=== PATIENT | male | born 1975 | race African-American/Black ===

== ENCOUNTER 2021-02-13 07:27 | Outpatient (REF) | payer BC, SELFPAY ==
[2021-02-13 08:05] LABS: MANUAL DIFF FLAG NO
[2021-02-13 08:15] LABS: Basophils Percent Auto 0.2 % (0-2); Eosinophils Absolute Auto 0.3 X10*3/uL (0.0-0.4); Hematocrit 43.8 % (42-52); Hemoglobin 14.8 g/dl (14.0-18.0); Imm Gran Abs Auto 0.03 X10*3/uL (0.00-0.03); Imm Gran Pct Auto 0.3 % (0.0-0.4); Lymphocytes Absolute Auto 2.2 X10*3/uL (1.2-4.9); Lymphocytes Percent Auto 24.2 % (20-40); Mean Corpuscular HGB Conc 33.8 g/dl (31.0-36.0); Mean Corpuscular Hemoglobin 27.6 pg (27.0-33.0); Mean Corpuscular Volume 81.6 fL (80-98); Mean Platelet Volume 10.1 fL (9.4-12.4); Monocytes Absolute Auto 0.5 X10*3/uL (0.1-1.2); Monocytes Percent Auto 5.7 % (2-11); Neutrophils Absolute Auto 6.1 X10*3/uL (2.0-8.3); Neutrophils Percent Auto 66.6 % (45-73); Platelet Count 264 X10*3/uL (160-400); Red Blood Count 5.37 X10*6/uL (4.60-5.80); Red Cell Distribution Width 13.7 % (11.0-16.0); White Blood Count 9.2 X10*3/uL (4.8-10.8)
[2021-02-13 08:30] LABS: Alanine Aminotransferase 24 U/L (0-40); Albumin Level 4.4 g/dL (3.5-5.0); Alkaline Phosphatase 123 U/L (39-117); Anion Gap 14 (12-20); Aspartate Amino Transferase 22 U/L (5-37); Bilirubin Total 0.7 mg/dL (0.0-1.0); Blood Urea Nitrogen 17 mg/dL (9-16); Calcium 9.1 mg/dL (8.4-10.2); Carbon Dioxide 27 mmol/L (22-29); Chloride 104 mmol/L (96-108); Cholesterol 179 mg/dL; Estimated Glomerular Filt Rate 60; Glucose Fasting 125 mg/dL (60-99); HDL Cholesterol 40 mg/dL; LDL Cholesterol Calculated 103 mg/dl; Potassium 3.5 mmol/L (3.3-5.1); Sodium 141 mmol/L (135-145); Total Protein 7.5 g/dL (6.5-8.0); Triglycerides 180 mg/dL
[2021-02-13 08:37] LABS: Glucose Urine UA NEG (NEG); Leukocyte Esterase Urine NEG (NEG); Nitrite Urine NEG (NEG); Urine Blood TRACE (NEG); Urine Ketones NEG (NEG); Urine Protein TRACE MG/DL (NEG-TRACE)
[2021-02-13 08:41] LABS: Appearance Urine CLEAR; Color Urine YELLOW
[2021-02-13 08:53] LABS: TSH reflex Free T4 0.87 uIU/mL (0.32-4.0)
[2021-02-13 08:56] LABS: RBC Urine 0-2 /HPF (0); Squamous Epithelial Cell Urine TRACE /LPF; WBC Urine 0 /HPF (0-4)
[2021-02-13 09:07] LABS: Creatinine Urine 173.29 mg/dL; Microalbum/Creatinine Ratio Ur 54.8 ug/mg cr
== END 2021-02-13 07:28 | disposition home or self-care (01) ==
LOC: HO.LAB 07:27
PROVIDERS: PCP Internal Medicine; Visit Provider Internal Medicine
DX: I12.9 Hypertensive chronic kidney disease with stage 1 through stage 4 chronic kidney disease, or unspecified chronic kidney disease (principal); N18.31 Chronic kidney disease, stage 3a; R73.01 Impaired fasting glucose; R79.89 Other specified abnormal findings of blood chemistry; E66.9 Obesity, unspecified
CPT/HCPCS: 36415; 80053; 80061; 81001; 82043; 84443; 85025

== ENCOUNTER 2021-08-13 07:21 | Outpatient (REF) | payer BC, SELFPAY ==
[2021-08-13 07:39] LABS: MANUAL DIFF FLAG NO
[2021-08-13 07:59] LABS: Basophils Percent Auto 0.2 % (0-2); Eosinophils Absolute Auto 0.2 X10*3/uL (0.0-0.4); Eosinophils Percent Auto 1.9 % (0-4); Hematocrit 44.5 % (42.0-52.0); Hemoglobin 14.9 g/dl (14.0-18.0); Imm Gran Abs Auto 0.02 X10*3/uL (0.00-0.03); Imm Gran Pct Auto 0.2 % (0.0-0.4); Lymphocytes Absolute Auto 2.2 X10*3/uL (1.2-4.9); Lymphocytes Percent Auto 26.3 % (20-40); Mean Corpuscular HGB Conc 33.5 g/dl (31.0-36.0); Mean Corpuscular Hemoglobin 27.7 pg (27.0-33.0); Mean Corpuscular Volume 82.7 fL (80.0-98.0); Mean Platelet Volume 10.2 fL (9.4-12.4); Monocytes Absolute Auto 0.5 X10*3/uL (0.1-1.2); Monocytes Percent Auto 6.2 % (2-11); Neutrophils Absolute Auto 5.47 x10*3/uL (2.0-8.3); Neutrophils Percent Auto 65.2 % (45-73); Platelet Count 266 X10*3/uL (160-400); Red Blood Count 5.38 X10*6/uL (4.60-5.80); Red Cell Distribution Width 13.6 % (11.0-16.0); White Blood Count 8.4 X10*3/uL (4.8-10.8)
[2021-08-13 08:26] LABS: Creatinine Urine 194.22 mg/dL; Microalbum/Creatinine Ratio Ur 78.2 ug/mg cr
[2021-08-13 08:28] LABS: Alanine Aminotransferase 21 U/L (0-40); Albumin Level 4.4 g/dL (3.5-5.0); Alkaline Phosphatase 113 U/L (39-117); Anion Gap 14 (12-20); Aspartate Amino Transferase 18 U/L (5-37); Bilirubin Total 0.8 mg/dL (0.0-1.0); Blood Urea Nitrogen 13 mg/dL (9-16); Carbon Dioxide 30 mmol/L (22-29); Chloride 103 mmol/L (96-108); Cholesterol 156 mg/dL; Estimated Glomerular Filt Rate 58; Glucose Fasting 120 mg/dL (60-99); HDL Cholesterol 38 mg/dL; LDL Cholesterol Calculated 88 mg/dl; Potassium 3.5 mmol/L (3.3-5.1); Sodium 143 mmol/L (135-145); Total Protein 7.2 g/dL (6.5-8.0); Triglycerides 152 mg/dL
[2021-08-13 08:31] LABS: Appearance Urine CLEAR; Color Urine YELLOW; Glucose Urine UA NEG (NEG); Leukocyte Esterase Urine NEG (NEG); Nitrite Urine NEG (NEG); UACC Culture Trigger NO; Urine Blood NEG (NEG); Urine Ketones NEG (NEG); Urine Protein 1+ MG/DL (NEG-TRACE)
[2021-08-13 08:39] LABS: Estimated Average Glucose 120 mg/dL; Hemoglobin A1c % 5.8 %
[2021-08-13 08:43] LABS: Mucus Urine 2+ /LPF; RBC Urine 0 /HPF (0); Squamous Epithelial Cell Urine 1+ /LPF; WBC Urine 0-2 /HPF (0-4)
[2021-08-13 08:48] LABS: TSH reflex Free T4 0.88 uIU/mL (0.32-4.0)
== END 2021-08-13 07:22 | disposition home or self-care (01) ==
LOC: HO.LAB 07:21
PROVIDERS: PCP Internal Medicine; Visit Provider Internal Medicine
DX: I10 Essential (primary) hypertension (principal); E11.9 Type 2 diabetes mellitus without complications; E78.00 Pure hypercholesterolemia, unspecified
CPT/HCPCS: 36415; 80053; 80061; 81001; 82043; 83036; 84443; 85025

== ENCOUNTER 2021-12-10 08:06 | Outpatient (REF) | payer BC, SELFPAY ==
[2021-12-10 08:37] LABS: MANUAL DIFF FLAG NO
[2021-12-10 08:55] LABS: Appearance Urine CLEAR; Color Urine YELLOW; Glucose Urine UA NEG (NEG); Leukocyte Esterase Urine NEG (NEG); Nitrite Urine NEG (NEG); UACC Culture Trigger NO; Urine Blood TRACE (NEG); Urine Ketones NEG (NEG); Urine Protein 2+ MG/DL (NEG-TRACE)
[2021-12-10 08:56] LABS: Basophils Percent Auto 0.2 % (0-2); Eosinophils Absolute Auto 0.1 X10*3/uL (0.0-0.4); Eosinophils Percent Auto 1.6 % (0-4); Hematocrit 44.2 % (42.0-52.0); Imm Gran Abs Auto 0.02 X10*3/uL (0.00-0.03); Imm Gran Pct Auto 0.2 % (0.0-0.4); Lymphocytes Absolute Auto 1.7 X10*3/uL (1.2-4.9); Lymphocytes Percent Auto 20.6 % (20-40); Mean Corpuscular HGB Conc 33.9 g/dl (31.0-36.0); Mean Corpuscular Volume 82.5 fL (80.0-98.0); Mean Platelet Volume 9.8 fL (9.4-12.4); Monocytes Absolute Auto 0.4 X10*3/uL (0.1-1.2); Monocytes Percent Auto 5.3 % (2-11); Neutrophils Absolute Auto 5.8 x10*3/uL (2.0-8.3); Neutrophils Percent Auto 72.1 % (45-73); Platelet Count 227 X10*3/uL (160-400); Red Blood Count 5.36 X10*6/uL (4.60-5.80); Red Cell Distribution Width 13.5 % (11.0-16.0); White Blood Count 8.1 X10*3/uL (4.8-10.8)
[2021-12-10 09:02] LABS: RBC Urine 0-2 /HPF (0); Squamous Epithelial Cell Urine TRACE /LPF; WBC Urine 0 /HPF (0-4)
[2021-12-10 09:21] LABS: Alanine Aminotransferase 28 U/L (0-40); Albumin Level 4.4 g/dL (3.5-5.0); Alkaline Phosphatase 113 U/L (39-117); Anion Gap 11 (12-20); Aspartate Amino Transferase 24 U/L (5-37); Bilirubin Total 0.8 mg/dL (0.0-1.0); Blood Urea Nitrogen 16 mg/dL (9-16); Calcium 9.4 mg/dL (8.4-10.2); Carbon Dioxide 32 mmol/L (22-29); Chloride 102 mmol/L (96-108); Cholesterol 157 mg/dL; Estimated Average Glucose 120 mg/dL; Estimated Glomerular Filt Rate 56; Glucose Fasting 129 mg/dL (60-99); HDL Cholesterol 39 mg/dL; Hemoglobin A1c % 5.8 %; LDL Cholesterol Calculated 93 mg/dl; Potassium 3.4 mmol/L (3.3-5.1); Sodium 142 mmol/L (135-145); Total Protein 7.4 g/dL (6.5-8.0); Triglycerides 127 mg/dL
[2021-12-10 09:46] LABS: TSH reflex Free T4 0.92 uIU/mL (0.32-4.0)
== END 2021-12-10 08:07 | disposition home or self-care (01) ==
LOC: HO.LAB 08:06
PROVIDERS: PCP Internal Medicine; Visit Provider Internal Medicine
DX: I10 Essential (primary) hypertension (principal); E55.9 Vitamin D deficiency, unspecified; E78.00 Pure hypercholesterolemia, unspecified; E11.9 Type 2 diabetes mellitus without complications
CPT/HCPCS: 36415; 80053; 80061; 81001; 82306; 83036; 84443; 85025

== ENCOUNTER 2022-04-09 07:42 | Outpatient (REF) | payer BC, SELFPAY ==
[2022-04-09 09:11] LABS: Appearance Urine CLEAR; Color Urine YELLOW; Estimated Average Glucose 123 mg/dL; Glucose Urine UA NEG (NEG); Hemoglobin A1c % 5.9 %; Leukocyte Esterase Urine NEG (NEG); Nitrite Urine NEG (NEG); Specific Gravity - Urine 1.015 (1.005-1.025); Urine Blood NEG (NEG); Urine Ketones NEG (NEG); Urine Protein TRACE MG/DL (NEG-TRACE)
[2022-04-09 09:22] LABS: Alanine Aminotransferase 25 U/L (0-40); Albumin Level 4.2 g/dL (3.5-5.0); Alkaline Phosphatase 106 U/L (39-117); Anion Gap 13 (12-20); Aspartate Amino Transferase 22 U/L (5-37); Bilirubin Total 0.7 mg/dL (0.0-1.0); Blood Urea Nitrogen 16 mg/dL (9-16); Calcium 8.9 mg/dL (8.4-10.2); Carbon Dioxide 31 mmol/L (22-29); Chloride 101 mmol/L (96-108); Cholesterol 165 mg/dL; Estimated Glomerular Filt Rate 58; Glucose Fasting 128 mg/dL (60-99); HDL Cholesterol 37 mg/dL; LDL Cholesterol Calculated 87 mg/dl; Potassium 3.2 mmol/L (3.3-5.1); Sodium 142 mmol/L (135-145); Total Protein 7.2 g/dL (6.5-8.0); Triglycerides 208 mg/dL
== END 2022-04-09 07:43 | disposition home or self-care (01) ==
LOC: HO.LAB 07:42
PROVIDERS: PCP Internal Medicine; Visit Provider Internal Medicine
DX: E11.9 Type 2 diabetes mellitus without complications (principal); E78.00 Pure hypercholesterolemia, unspecified; I10 Essential (primary) hypertension
CPT/HCPCS: 36415; 80053; 80061; 81003; 83036

== ENCOUNTER 2022-08-20 06:51 | Outpatient (REF) | payer BC, SELFPAY ==
[2022-08-20 13:34] LABS: Alanine Aminotransferase 43 U/L (0-40); Albumin Level 4.4 g/dL (3.5-5.0); Alkaline Phosphatase 100 U/L (39-117); Anion Gap 19 (12-20); Aspartate Amino Transferase 32 U/L (5-37); Bilirubin Total 0.7 mg/dL (0.0-1.0); Blood Urea Nitrogen 18 mg/dL (9-16); Calcium 9.2 mg/dL (8.4-10.2); Carbon Dioxide 29 mmol/L (22-29); Chloride 99 mmol/L (96-108); Cholesterol 178 mg/dL; Estimated Glomerular Filt Rate 55; HDL Cholesterol 43 mg/dL; LDL Cholesterol Calculated 98 mg/dl; Potassium 3.2 mmol/L (3.3-5.1); Sodium 144 mmol/L (135-145); Total Protein 7.5 g/dL (6.5-8.0); Triglycerides 186 mg/dL
[2022-08-20 13:49] LABS: TSH reflex Free T4 1.37 uIU/mL (0.32-4.0)
[2022-08-20 14:07] LABS: Glucose Fasting 150 mg/dL (60-99)
[2022-08-20 14:32] LABS: Estimated Average Glucose 128 mg/dL; Hemoglobin A1c % 6.1 %
== END 2022-08-20 06:52 | disposition home or self-care (01) ==
LOC: HO.LAB 06:51
PROVIDERS: PCP Internal Medicine; Visit Provider Internal Medicine
DX: E78.00 Pure hypercholesterolemia, unspecified (principal); R73.01 Impaired fasting glucose
CPT/HCPCS: 36415; 80053; 80061; 83036; 84443

== ENCOUNTER 2023-01-13 07:48 | Outpatient (REF) | payer BC, SELFPAY ==
[2023-01-13 08:01] LABS: MANUAL DIFF FLAG NO
[2023-01-13 08:23] LABS: Basophils Percent Auto 0.3 % (0-2); Eosinophils Absolute Auto 0.2 X10*3/uL (0.0-0.4); Eosinophils Percent Auto 1.5 % (0-4); Hematocrit 45.5 % (42.0-52.0); Hemoglobin 15.8 g/dl (14.0-18.0); Imm Gran Abs Auto 0.02 X10*3/uL (0.00-0.03); Imm Gran Pct Auto 0.2 % (0.0-0.4); Lymphocytes Absolute Auto 2.2 X10*3/uL (1.2-4.9); Lymphocytes Percent Auto 21.5 % (20-40); Mean Corpuscular HGB Conc 34.7 g/dl (31.0-36.0); Mean Corpuscular Hemoglobin 27.8 pg (27.0-33.0); Mean Corpuscular Volume 80.1 fL (80.0-98.0); Mean Platelet Volume 9.6 fL (9.4-12.4); Monocytes Absolute Auto 0.4 X10*3/uL (0.1-1.2); Monocytes Percent Auto 4.3 % (2-11); Neutrophils Absolute Auto 7.2 x10*3/uL (2.0-8.3); Neutrophils Percent Auto 72.2 % (45-73); Platelet Count 274 X10*3/uL (160-400); Red Blood Count 5.68 X10*6/uL (4.60-5.80); Red Cell Distribution Width 13.5 % (11.0-16.0)
[2023-01-13 08:31] LABS: Appearance Urine Clear; Color Urine Yellow; Glucose Urine UA 100 mg/dL (Negative); Leukocyte Esterase Urine Negative (Negative); Nitrite Urine Negative (Negative); PH 6.5 (5.0-9.0); Specific Gravity - Urine 1.025 (1.005-1.025); UMIC TRIGGER UACC YES; Urine Blood Trace (Negative); Urine Ketones Negative (Negative); Urine Protein 100 (2+) mg/dL (Neg-Trace)
[2023-01-13 08:36] LABS: Bacteria Urine None Seen (None Seen); Hyaline Casts Urine 0-2 /LPF (0-2); RBC Urine 0-2 /HPF (0-2); Squamous Epithelial Cell Urine 0-2 /HPF (0-2); WBC Urine 0-5 /HPF (0-5)
[2023-01-13 08:53] LABS: Creatinine Urine 244.47 mg/dL; Microalbum/Creatinine Ratio Ur 184.8 ug/mg cr
[2023-01-13 08:55] LABS: Alanine Aminotransferase 28 U/L (0-40); Albumin Level 4.3 g/dL (3.5-5.0); Alkaline Phosphatase 110 U/L (39-117); Anion Gap 12 (12-20); Aspartate Amino Transferase 18 U/L (5-37); Bilirubin Total 0.8 mg/dL (0.0-1.0); Blood Urea Nitrogen 21 mg/dL (9-16); Calcium 9.4 mg/dL (8.4-10.2); Carbon Dioxide 32 mmol/L (22-29); Chloride 102 mmol/L (96-108); Cholesterol 179 mg/dL; Estimated Glomerular Filt Rate 50; Glucose Fasting 181 mg/dL (60-99); HDL Cholesterol 42 mg/dL; LDL Cholesterol Calculated 115 mg/dl; Potassium 3.3 mmol/L (3.3-5.1); Sodium 143 mmol/L (135-145); Total Protein 7.3 g/dL (6.5-8.0); Triglycerides 114 mg/dL
[2023-01-13 09:13] LABS: Prostate Specific Antigen 1.49 ng/mL (<0.05-4.0); Vitamin D 25-OH Total 46.2 ng/mL (>30)
== END 2023-01-13 07:49 | disposition home or self-care (01) ==
LOC: HO.LAB 07:48
PROVIDERS: Nurse Practitioner Family; PCP Internal Medicine; Visit Provider Internal Medicine
DX: I12.9 Hypertensive chronic kidney disease with stage 1 through stage 4 chronic kidney disease, or unspecified chronic kidney disease (principal); N18.31 Chronic kidney disease, stage 3a; R30.0 Dysuria; E78.00 Pure hypercholesterolemia, unspecified; E55.9 Vitamin D deficiency, unspecified; Z12.5 Encounter for screening for malignant neoplasm of prostate
CPT/HCPCS: 36415; 80053; 80061; 81001; 82043; 82306; 84153; 85025

== ENCOUNTER 2023-06-24 12:04 | Outpatient (REF) | payer BC, SELFPAY ==
[2023-06-24 12:16] LABS: MANUAL DIFF FLAG NO
[2023-06-24 12:44] LABS: Basophils Percent Auto 0.4 % (0-2); Eosinophils Absolute Auto 0.1 X10*3/uL (0.0-0.4); Eosinophils Percent Auto 1.3 % (0-4); Hemoglobin 14.6 g/dl (14.0-18.0); Imm Gran Abs Auto 0.02 X10*3/uL (0.00-0.03); Imm Gran Pct Auto 0.2 % (0.0-0.4); Lymphocytes Absolute Auto 2.1 X10*3/uL (1.2-4.9); Lymphocytes Percent Auto 24.9 % (20-40); Mean Corpuscular HGB Conc 34.8 g/dl (31.0-36.0); Mean Corpuscular Hemoglobin 28.3 pg (27.0-33.0); Mean Corpuscular Volume 81.6 fL (80.0-98.0); Mean Platelet Volume 9.9 fL (9.4-12.4); Monocytes Absolute Auto 0.4 X10*3/uL (0.1-1.2); Monocytes Percent Auto 5.1 % (2-11); Neutrophils Absolute Auto 5.7 x10*3/uL (2.0-8.3); Neutrophils Percent Auto 68.1 % (45-73); Platelet Count 262 X10*3/uL (160-400); Red Blood Count 5.15 X10*6/uL (4.60-5.80); Red Cell Distribution Width 13.7 % (11.0-16.0); White Blood Count 8.4 X10*3/uL (4.8-10.8)
[2023-06-24 13:11] LABS: Estimated Average Glucose 148 mg/dL; Hemoglobin A1c % 6.8 % (<6.0)
[2023-06-24 13:28] LABS: Alanine Aminotransferase 26 U/L (0-40); Albumin Level 4.4 g/dL (3.5-5.0); Alkaline Phosphatase 101 U/L (39-117); Anion Gap 11 (12-20); Aspartate Amino Transferase 20 U/L (5-37); Bilirubin Total 0.8 mg/dL (0.0-1.0); Blood Urea Nitrogen 12 mg/dL (9-16); Calcium 9.5 mg/dL (8.4-10.2); Carbon Dioxide 33 mmol/L (22-29); Chloride 103 mmol/L (96-108); Cholesterol 157 mg/dL (<200); Estimated Glomerular Filt Rate 57; Glucose Fasting 123 mg/dL (60-99); HDL Cholesterol 39 mg/dL (>40); LDL Cholesterol Calculated 95 mg/dL (<100); Sodium 144 mmol/L (135-145); Total Protein 7.4 g/dL (6.5-8.0); Triglycerides 117 mg/dL (<150)
[2023-06-24 13:44] LABS: TSH reflex Free T4 0.93 uIU/mL (0.32-4.0); Vitamin D 25-OH Total 42.4 ng/mL (>30)
[2023-06-24 14:20] LABS: Appearance Urine Clear; Color Urine Dark Yellow; Glucose Urine UA Negative (Negative); Leukocyte Esterase Urine Negative (Negative); Nitrite Urine Negative (Negative); PH 6.5 (5.0-9.0); Specific Gravity - Urine 1.025 (1.005-1.025); UMIC TRIGGER UACC YES; Urine Blood Negative (Negative); Urine Ketones Trace mg/dL (Negative); Urine Protein 30 (1+) mg/dL (Neg-Trace)
[2023-06-24 14:26] LABS: Bacteria Urine None Seen (None Seen); Hyaline Casts Urine 0-2 /LPF (0-2); RBC Urine 0-2 /HPF (0-2); Squamous Epithelial Cell Urine 0-2 /HPF (0-2); WBC Urine 0-5 /HPF (0-5)
[2023-06-24 14:48] LABS: Microalbum/Creatinine Ratio Ur 31.9 ug/mg cr (<30)
== END 2023-06-24 12:05 | disposition home or self-care (01) ==
LOC: HO.LAB 12:04
PROVIDERS: PCP Internal Medicine; Visit Provider Internal Medicine
DX: I10 Essential (primary) hypertension (principal); E11.9 Type 2 diabetes mellitus without complications; E55.9 Vitamin D deficiency, unspecified; E78.00 Pure hypercholesterolemia, unspecified
CPT/HCPCS: 36415; 80053; 80061; 81001; 82043; 82306; 82570; 83036; 84443; 85025

== ENCOUNTER 2023-06-24 16:38 | Outpatient (AMB) | payer BC, SELFPAY ==
[2023-06-24 16:41] VITALS: BP 150/90; BMI 34.4
--- NOTE | 2023-06-24 16:41 | A.OFFPC_ITS ---
Vital Signs 06/24/23 16:41 Height 6 ft Weight 254 lb BMI 34.4 BP 150/90 H Blood Pressure Location Lt brachial Position Sitting Intake Visit Reasons: Annual Exam-due for colonoscopy Intake Note: Patient here for a physical exam, due for colonoscopy Medical Transcription Supervisor Required: No Accompanied by: Self / Same As Patient Allergies cephalexin [Keflex] Allergy (Intermediate, Verified 06/24/23 17:27) rash Medication List - Last Reconciled 06/24/23 by Hayden Delgado MD amlodipine 10 mg PO DAILY 90 days cholecalciferol (vitamin D3) 50 mcg PO DAILY 90 days Farxiga (dapagliflozin propanediol) 5 mg PO QAM 30 days NS hydralazine 25 mg PO BID 30 days losartan-hydrochlorothiazide 100-12.5 mg 1 tab PO DAILY 90 days Tobacco use date assessed: 01/10/23 Dental Screening Dental Screen Date: 06/24/23 Did you have a dental visit in the last 12 months?: No Did you have a dental problem in the last 6 months where you did not have access to dental care?: No Was dental information given to patient?: Patient has dentist HPI Annual Exam-due for colonoscopy HPI Details Patient comes in today for his annual physical examination States that he feels okay He denies any headaches or dizziness Denies any chest pains, no shortness of breath No nausea /vomiting, no abdominal pain No change in bowel habits noted Denies any acute urinary symptoms Had his follow up labs done earlier today - to discuss his results [facility] Medical History Mixed hyperlipidemia Vitamin D deficiency Diabetes mellitus Obesity (BMI 30-39.9) Elevated LFTs Chronic kidney disease (CKD), stage III (moderate) Benign essential hypertension Surgical History No pertinent past surgical history Family History Father Hypertension Mother No problems noted. 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 1. Little interest or pleasure in doing things: not at all 2. Feeling down, depressed, or hopeless: not at all 3. Trouble falling or staying asleep, or sleeping too much: not at all 4. Feeling tired or having little energy: not at all 5. Poor appetite or overeating: not at all 6. Feeling bad about yourself - or that you are a failure or have let yourself or your family down: not at all 7. Trouble concentrating on things, such as reading the newspaper or watching television: not at all 8. Moving or speaking so slowly that other people could have noticed. Or the opposite - being so fidgety or restless that you have been moving around a lot more than usual: not at all 9. Thoughts that you would be better off or of hurting yourself in some way: not at all Total score: 0 Depression Screening Interpretation: Negative 65304 - PHQ-9 Billing: Yes Source: Developed by Drs. Davy Marina, Sagrario Mueller, Herber Chen and colleagues, with an educational christine from [employer]. Thrive Questionnaire Date Thrive assessed: 06/24/23 I am a: Patient What is your living situation today?: I have a steady place to live Within the past 12 months, did the food you bought not last and you didn't have the money to get more?: Never true Within the past 12 months, did you worry whether your food would run out before you got money to buy more?: Never true Currently or been in a relationship where the following occur: no concerns reported AUDIT C Alcohol Use Questionnaire (AUDIT-C) 1. How often do you have a drink containing alcohol?: Never 3. How often do you have six or more drinks on one occasion?: Never Total Score: 0 Score Reviewed/Action Taken: Yes KRISTIN-7 AMB Questionnaire KRISTIN-7 Date KRISTIN - 7 assessed: 01/10/23 Source: Developed by Drs. Davy Marina, Sagrario Mueller, Herber Chen and colleagues, with an educational christine from [employer]. Review of Systems Const Denies chills, Denies fatigue, Denies fever(s), Denies headache(s), Denies malaise and Denies weakness Eyes Denies blurry vision, Denies change in vision, Denies irritation and Denies itchy eyes ENT Denies dysphagia, Denies dizziness, Denies otalgia, Denies headache(s), Denies nasal congestion, Denies neck pain, Denies odynophagia and Denies sore throat Card Denies chest pain, Denies rapid heart rate, Denies irregular heart rhythm, Denies palpitations and Denies dyspnea Resp Denies chest congestion, Denies cough, Denies dyspnea and Denies wheezing GI Denies abdominal pain, Denies bloating, Denies constipation, Denies dysphagia, Denies heartburn, Denies diarrhea, Denies nausea, Denies odynophagia and Denies vomiting Denies hematuria, Denies difficulty urinating, Denies dysuria, Denies urinary frequency and Denies urinary urgency Musc Denies back pain, Denies arthralgias, Denies joint swelling, Denies muscle weakness and Denies neck pain Skin/Breast Denies change in pigmentation, Denies lesions, Denies rash and Denies unusual bruising Neuro Denies dizziness, Denies headache(s), Denies paresthesias and Denies weakness Endo Denies fatigue and Denies palpitations Aller/Immun Denies itchy eyes and Denies wheezing Physical exam (Primary Care) Vital Signs: Last Vital Signs BP 150/90 H 06/24/23 16:41 BMI result Body Mass Index 34.4 Tobacco/Smoking Status: Tobacco use Status Tobacco use date assessed 01/10/23 06/24/23 16:44 Patient Tobacco Use Status Former Tobacco user 06/24/23 16:44 Tobacco use type Cigarette 06/24/23 16:44 e-Cigarette/Vaping Use Never Used 06/24/23 16:44 Depression Screening Interpretation: Negative Thrive Assessment: Date of Thrive Assessment Date Thrive assessed 01/10/23 06/24/23 16:44 Currently or been in a relationship where the following occur: no concerns reported Const General: no acute distress, alert and awake Orientation/consciousness: patient oriented x3 [facility] Head: Yes normocephalic and Yes atraumatic Ears: external ears normal, TM's normal bilaterally and EAC's normal General nose exam: No nasal discharge present Face and sinus: Yes normal facial exam and Yes sinuses nontender Teeth and gingiva: dentition normal Throat: Yes posterior oropharynx normal and Yes tonsils normal (no TP co ngestion) Eyes Eyelids: Yes eyelids normal Conjunctivae: conjunctivae normal Pupils: Equal, round and reactive pupils present EOM: EOMs intact bilaterally Neck Neck: Yes no lymphadenopathy and Yes supple Thyroid: Thyroid normal Resp Auscultation: clear to auscultation bilaterally, no rales and no wheezes Cardio Rate: regular rate Rhythm: regular rhythm Heart sounds: no murmurs GI Palpation (GI): Soft to palpation, nontender and No hepatosplenomegaly present Auscultation: normal bowel sounds General: Yes no CVA tenderness Back/Spine/Pelvis Back: no CVA tenderness Thoracic/Lumbar Spine: thoracic and lumbar spine normal to inspection Skin Lesions: no lesions Rashes: no rashes Neuro General: patient oriented x3, moves all extremities, no focal motor deficits and CN's II-XI intact bilaterally Cranial nerves: Yes Equal, round and reactive pupils present Cognition (Neuro): normal cognition Gait exam (Neuro): Normal gait present Extrem General: Yes no clubbing, cyanosis or edema Assessment and Plan Assessment & Plan (1) Annual physical exam: Code(s): Z00.00 - Encounter for general adult medical examination without abnormal findings Plan: Results of his labs done earlier this morning reviewed and discussed with patient (2) Benign essential hypertension: Code(s): I10 - Essential (primary) hypertension Plan: Reinforced low sodium diet - goal is systolic BP of at least 120 to 130 mm or less Continue Losartan-HCT 100-12.5 mg QD, Amlodipine 10 mg QD and Hydralazine 25 mg BID Was doing well on Clonidine 0.2 mg BID but reports feeling tired and sleepy during the day while working and also when driving so he was switched from Clonidine to Hydralazine at his last visit; states that he has been tolerating his Hydralazine without any problems Patient is reminded to continue monitoring his BP regularly (3) Diabetes mellitus: Code(s): E11.9 - Type 2 diabetes mellitus without complications Qualifiers: Diabetes mellitus complication status: without complication 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 insulin use: without termite control servicer use Diabetes mellitus type: type 2 Qualified Code(s): E11.9 - Type 2 diabetes mellitus without complications Plan: In-office HgbA1c done today is at 6.8% (in-office HgbA1c was also at 6.8% a few months ago but HgbA1c was at 5.9% just last year) - goal is <7.0% Reinforced diabetic diet; patient continues to be able to manage his diabetes with diet modification alone so far but have advised him that his diabetes control has actually progressed in the past year or two and recommend that he start taking medication(s) for his diabetes KRISTEN or risk further progression of his disease He is now agreeable to starting on medication(s) - in light of his CKD, will try starting him on Farxiga 5 mg QD if insurance will cover Rx Advised that Farxiga may also help somewhat with his blood pressure Will recheck his HgbA1c and labs in 4 months for follow up (4) Chronic kidney disease (CKD), stage III (moderate): Code(s): N18.30 - Chronic kidney disease, stage 3 unspecified Qualifiers: Chronic kidney disease stage 3 subtype: stage 3a (GFR 45-59) Qualified Code(s): N18.31 - Chronic kidney disease, stage 3a Plan: Stable - will continue monitoring patient's GFR and serum creatinine regularly (5) Mixed hyperlipidemia: Code(s): E78.2 - Mixed hyperlipidemia Plan: Advised that his recent cholesterol levels are acceptable but with diabetes, the goal is an LDL cholesterol closer to 70 mg/dl Reinforced low cholesterol diet Will recheck his labs and fasting lipids in 4 months for follow up (6) Elevated LFTs: Code(s): R79.89 - Other specified abnormal findings of blood chemistry Plan: Improved and have remained normal on his recent labs - was most likely related to his weight Will continue to monitor his LFTs regularly (7) Vitamin D deficiency: Code(s): E55.9 - Vitamin D deficiency, unspecified Plan: Continue Vitamin D3 2000 units QD (8) Obesity (BMI 30-39.9): Code(s): E66.9 - Obesity, unspecified Plan: Reinforced diet/exercise as tolerated/lose weight (9) Colon cancer screening: Code(s): Z12.11 - Encounter for screening for malignant neoplasm of colon Plan: Will refer patient for screening colonoscopy - this will be his index screening Plan Follow up in 4 months Orders: Orders Hemoglobin A1c 4 Months E11.9 - Type 2 diabetes mellitus without complications Comprehensive [place]. Panel Fast 4 Months E78.00 - Pure hypercholesterolemia, unspecified Microalbumin, Random (w Creat) 4 Months E11.9 - Type 2 diabetes mellitus without complications UA CC w/rflx Micro + Cult 4 Months R30.0 - Dysuria Complete Blood Count Auto Diff 4 Months I10 - Essential (primary) hypertension Lipid Panel 4 Months E78.00 - Pure hypercholesterolemia, unspecified TSH reflex Free T4 4 Months E78.00 - Pure hypercholesterolemia, unspecified Vitamin D 25-OH Total 4 Months E55.9 - Vitamin D deficiency, unspecified Referrals Gastroenterology Referral Z12.11 - Encounter for screening for malignant neoplasm of colon Medications: New Farxiga (dapagliflozin propanediol) 5 mg PO QAM 30 days 30 tabs 0RF NS Farxiga (dapagliflozin propanediol) 5 mg PO QAM 30 days 30 tabs 3RF NS Farxiga (dapagliflozin propanediol) 5 mg PO QAM 30 tabs 3RF 30 days NS Coding Level of Care Code Est Pt Prev Care 40-64y(84608) Diagnoses Annual physical exam Z00.00 Benign essential hypertension I10 Type 2 diabetes mellitus without complication, without long-term current use of insulin E11.9 Diabetes mellitus complication status: without complication Diabetes mellitus retirement insulin use: without retirement use Diabetes mellitus type: type 2 Stage 3a chronic kidney disease N18.31 Chronic kidney disease stage 3 subtype: stage 3a (GFR 45-59) Mixed hyperlipidemia E78.2 Elevated LFTs R79.89 Vitamin D deficiency E55.9 Obesity (BMI 30-39.9) E66.9 Colon cancer screening Z12.11
== END 2023-06-24 17:25 | disposition home or self-care (01) ==
PROVIDERS: PCP Internal Medicine; Visit Provider Internal Medicine
DX: Z00.00 Encounter for general adult medical examination without abnormal findings (principal); I12.9 Hypertensive chronic kidney disease with stage 1 through stage 4 chronic kidney disease, or unspecified chronic kidney disease; E11.22 Type 2 diabetes mellitus with diabetic chronic kidney disease; N18.31 Chronic kidney disease, stage 3a; E55.9 Vitamin D deficiency, unspecified; E78.2 Mixed hyperlipidemia; E66.9 Obesity, unspecified
CPT/HCPCS: 99396

== ENCOUNTER 2023-08-15 15:42 | Outpatient (AMB) | payer BC, SELFPAY ==
[2023-08-15 15:47] VITALS: BP 142/92; PULSE 61; BMI 32.5
--- NOTE | 2023-08-15 15:47 | MHC.OFFVIS ---
Intake Vital Signs 08/15/23 15:47 Height 6 ft 1 in Weight 246 lb 0.574 oz BMI 32.5 BP 142/92 H Blood Pressure Location Rt brachial Position Sitting Pulse 61 Intake Visit Reasons: Colonoscopy screening Intake Note: Patient presents to in office visit today as a new patient for colonoscopy screening. CC: Patient reports occasional heartburn but states he takes Tums for it and this helps with sx. Denies other GI symptoms. Regional Wildlife Agent Required: No Accompanied by: Self / Same As Patient Allergies cephalexin [Keflex] Allergy (Intermediate, Verified 06/24/23 17:27) rash HPI Colonoscopy screening HPI Details 48-year-old male here for preprocedural meeting to discuss a screening colonoscopy. He is referred by Hayden Delgado of [facility] primary care. PMX Obesity Diabetes Chronic kidney disease stage 3 Hypertension High cholesterol Impaired fasting glucose * SURGICAL HISTORY Vasectomy * ALLERGIES Keflex - hives * [employer] LABS: Laboratory Tests 06/24/23 12:15 WBC 8.4 Hgb 14.6 Hct 42.0 Plt Count 262 Estimated GFR 57 Hemoglobin A1c % 6.8 H Total Bilirubin 0.8 AST 20 ALT 26 Alkaline Phosphata se 101 TSH 0.93 TODAY'S VISIT This is his first colonoscopy. He denies any bowel or upper GI problems. Has no real experience with anesthesia or sedation. He denies any cardiac or respiratory problems. No ID problems. His father had colon polyps. [facility] Medical History Mixed hyperlipidemia Vitamin D deficiency Diabetes mellitus Obesity (BMI 30-39.9) Elevated LFTs Chronic kidney disease (CKD), stage III (moderate) Benign essential hypertension Surgical History No pertinent past surgical history Family History Father Hypertension Mother No problems noted. 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 Current occupational exposures/hazards: No Cognitive needs: No Hearing needs: No Vision needs: Yes Review of Systems Const Denies fatigue, Denies fever(s), Denies night sweats, Denies poor appetite and Denies weight loss Eyes Details: glasses Reports requires corrective lenses ENT Reports Normal hearing present, Denies dysphagia, Denies odynophagia, Denies throat swelling and Denies tongue swelling Card Reports no additional complaints Resp Reports no additional complaints GI Denies abdominal pain, Denies melena, Denies bloating, Denies hematochezia, Denies constipation, Denies GI cramping, Denies dysphagia, Denies excessive flatus, Denies early satiety, Denies heartburn, Denies diarrhea, Denies nausea, Denies odynophagia, Denies vomiting and Denies hematemesis Reports nocturia Skin/Breast Denies pruritus, Denies lesions, Denies rash and Denies jaundice Neuro Reports Normal hearing present and Denies Abnormal speech present Endo Denies fatigue Aller/Immun Denies throat swelling and Denies tongue swelling Physical Exam Vital Signs: Last Vital Signs Pulse 61 08/15/23 15:47 BP 142/92 H 08/15/23 15:47 BMI result Body Mass Index 32.5 Const General: cooperative, no acute distress, well developed and well groomed Nutritional Appearance: well nourished and overweight Orientation/consciousness: oriented to person, oriented to place and oriented to time Limitations: No language barrier HEENT Head: Yes normocephalic and Yes atraumatic Eyes General: appearance normal, both eyes and all related structures Pupils: Equal, round and reactive pupils present Neck Neck: Yes normal visual inspection and Yes no lymphadenopathy Thyroid: Thyroid normal Chest Other: Multiple keloid scar across his chest Resp Effort & Inspection: normal respiratory effort and able to speak in complete sentences Auscultation: clear to auscultation bilaterally Cardio Rate: regular rate Rhythm: regular rhythm Heart sounds: Normal, physiologic split S2 sound present Peripheral pulses: radial pulses present and posterior tibial pulses present GI Inspection: No distended, No Abdominal panniculus present and Yes obesity Palpation (GI): Soft to palpation, nontender, no guarding, not rigid and No hepatosplenomegaly present Percussion: Yes normal to percussion Auscultation: normal bowel sounds Rectal Exam - Male: Yes deferred Skin General skin exam: no rashes or lesions noted, turgor normal, skin not dry, no jaundice, No spider nevi and no striae Rashes: no rashes Nails: normal Neuro General: oriented to person, oriented to place and oriented to time Cranial nerves: Yes Equal, round and reactive pupils present and Yes Normal hearing present Speech: No Abnormal speech present Extrem General: Yes normal to inspection, No clubbing, No cyanosis and No edema Psych Appearance: grossly normal and well kempt Mental Status: mental status grossly normal Speech and movement: Normal speech and movement present Affect: normal affect Attitude: cooperative Thought process: Normal thought process present and not confabulating Thought content: Normal thought content present Insight: Limited insight present (Psych) Judgement: Limited judgement present (Psych) Assessment & Plan Assessment & Plan (1) Pre-op examination: Code(s): Z01.818 - Encounter for other preprocedural examination Plan: This is his first colonoscopy. He denies any bowel or upper GI problems. Has no real experience with anesthesia or sedation. He denies any cardiac or respiratory problems. No ID problems. His father had colon polyps. (2) Family history of polyps in the colon: Comment: Father Code(s): Z83.719 - Family history of colon polyps, unspecified Orders: Orders Colonoscopy - GI Use Only Today Z01.818 - Encounter for other preprocedural examination Medications: New peg 3350-electrolytes 236-22.74-6.74 -5.86 gram (Golytely) until fecal effluent is clear; do not exceed a total volume of 2,000 mL 240 mL PO Q10M 1 day 4,000 mL 0RF Z12.11 - Encounter for screening for malignant neoplasm of colon Coding Level of Care Code New Pt Level 3 (40197) Diagnoses Pre-op examination Z01.818 Family history of polyps in the colon Z83.719
== END 2023-08-15 16:14 | disposition home or self-care (01) ==
PROVIDERS: PCP Internal Medicine; Visit Provider Nurse Practitioner
DX: Z01.818 Encounter for other preprocedural examination (principal); Z12.11 Encounter for screening for malignant neoplasm of colon; Z83.719 Family history of colon polyps, unspecified
CPT/HCPCS: S0285

== ENCOUNTER → 2023-08-15 15:42 | Outpatient (BNVA) | payer BC, SELFPAY | PROVIDERS: PCP Internal Medicine; Visit Provider Nurse Practitioner ==

== ENCOUNTER 2023-12-24 10:31 | Outpatient (AMB) | payer BC, SELFPAY ==
[2023-12-24 10:38] VITALS: BP 130/84; PULSE 80; O2SAT 98; BMI 31.5
--- NOTE | 2023-12-24 10:38 | MHC.PC.OV ---
Vital Signs 12/24/23 10:38 Height 6 ft 1 in Weight 239 lb 2 oz BMI 31.5 BP 130/84 Blood Pressure Location Lt brachial Position Sitting Pulse 80 Pulse Source Pulse Oximeter Pulse Oximetry (%) 98 Oxygen Delivery Method Room Air Intake Visit Reasons: DM, HTN, hyperlipidemia Securities Consultant Required: No Accompanied by: Self / Same As Patient Allergies cephalexin [Keflex] Allergy (Intermediate, Verified 12/24/23 11:36) rash Medication List - Last Reconciled 12/24/23 by Hayden Delgado MD amlodipine 10 mg PO DAILY 90 days cholecalciferol (vitamin D3) 50 mcg PO DAILY 90 days hydralazine 25 mg PO BID 30 days losartan-hydrochlorothiazide 100-12.5 mg 1 tab PO DAILY 90 days peg 3350-electrolytes 236-22.74-6.74 -5.86 gram (Golytely) 240 mL PO Q10M 1 day Tobacco use date assessed: 12/24/23 Dental Screening Dental Screen Date: 12/24/23 Did you have a dental visit in the last 12 months?: No Did you have a dental problem in the last 6 months where you did not have access to dental care?: No Was dental information given to patient?: No HPI DM, HTN, hyperlipidemia HPI Details Patient comes in today for his follow up visit States that he feels okay He denies any headaches or dizziness Denies any chest pains, no SOB No nausea/vomiting, no abdominal pain No change in bowel habits noted Was not able to get his follow up labs done prior to his visit today - states that he will go and get his labs done sometime in the next few days [facility] Medical History Mixed hyperlipidemia Vitamin D deficiency Diabetes mellitus Obesity (BMI 30-39.9) Elevated LFTs Chronic kidney disease (CKD), stage III (moderate) Benign essential hypertension Surgical History No pertinent past surgical history Family History Father Hypertension Mother No problems noted. 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 1. Little interest or pleasure in doing things: not at all 2. Feeling down, depressed, or hopeless: not at all 3. Trouble falling or staying asleep, or sleeping too much: not at all 4. Feeling tired or having little energy: not at all 5. Poor appetite or overeating: not at all 6. Feeling bad about yourself - or that you are a failure or have let yourself or your family down: not at all 7. Trouble concentrating on things, such as reading the newspaper or watching television: not at all 8. Moving or speaking so slowly that other people could have noticed. Or the opposite - being so fidgety or restless that you have been moving around a lot more than usual: not at all 9. Thoughts that you would be better off or of hurting yourself in some way: not at all Total score: 0 Depression Screening Interpretation: Negative Depression Screening Done: Yes 29429 - PHQ-9 Billing: Yes Source: Developed by Drs. Davy Marina, Sagrario Mueller, Herber Chen and colleagues, with an educational christine from [employer]. Thrive Questionnaire Date Thrive assessed: 12/24/23 I am a: Patient What is your living situation today?: I have a steady place to live Within the past 12 months, did the food you bought not last and you didn't have the money to get more?: Never true Within the past 12 months, did you worry whether your food would run out before you got money to buy more?: Never true Do you have trouble paying for medicines?: No Do you have trouble getting transportation to medical appointments?: No Do you have trouble paying your heating and electricity bill?: No Do you have trouble taking care of your child, family member or friend?: No Do you have trouble with day-to-day activities such as bathing, preparing meals, shopping, managing finances, etc.?: No Are you currently unemployed and looking for a job?: No Are you interested in more education?: No Please select the resources that you would like help with: None Currently or been in a relationship where the following occur: no concerns reported THRIVE Score: 0 AUDIT C Alcohol Use Questionnaire (AUDIT-C) 1. How often do you have a drink containing alcohol?: Never 3. How often do you have six or more drinks on one occasion?: Never Total Score: 0 Score Reviewed/Action Taken: Yes KRISTIN-7 AMB Questionnaire KRISTIN-7 Date KRISTIN - 7 assessed: 12/24/23 Feeling nervous, anxious, or on edge: 0 = Not at all Not being able to stop or control worryin = Not at all Worrying too much about different things: 0 = Not at all Trouble relaxin = Not at all Being so restless that it is hard to sit still: 0 = Not at all Becoming easily annoyed or irritable: 0 = Not at all Feeling afraid as if something awful might happen: 0 = Not at all Total KRISTIN-7 score (0-4 normal; 5-9 mild; 10-14 moderate; 15-21 severe): 0 Source: Developed by Drs. Davy Marina, Sagrario Mueller, eHrber Chen and colleagues, with an educational christine from [employer]. Review of Systems Const Denies fatigue, Denies fever(s) and Denies headache(s) ENT Denies dysphagia, Denies dizziness, Denies otalgia, Denies headache(s), Denies odynophagia, Reports tinnitus (on and off in both ears) and Denies sore throat Card Denies chest pain, Denies palpitations and Denies dyspnea Resp Denies cough, Denies dyspnea and Denies wheezing GI Denies abdominal pain, Denies constipation, Denies dysphagia, Denies heartburn, Denies diarrhea, Denies nausea, Denies odynophagia and Denies vomiting Denies dysuria, Denies nocturia and Denies urinary frequency Musc Denies back pain and Denies arthralgias Skin/Breast Denies rash Neuro Denies dizziness and Denies headache(s) Endo Denies fatigue and Denies palpitations Aller/Immun Denies wheezing Physical exam (Primary Care) Vital Signs: Last Vital Signs Pulse 80 12/24/23 10:38 BP 130/84 12/24/23 10:38 Pulse Ox 98 12/24/23 10:38 Oxygen Delivery Method Room Air 12/24/23 10:38 BMI result Body Mass Index 31.5 Tobacco/Smoking Status: Tobacco use Status Tobacco use date assessed 12/24/23 12/24/23 10:40 Patient Tobacco Use Status Former Tobacco user 12/24/23 10:40 Tobacco use type Cigarette 12/24/23 10:40 e-Cigarette/Vaping Use Never Used 12/24/23 10:40 PHQ-9: PHQ-9 Score PHQ-9: Total score 0 12/24/23 11:38 Depression Screening Interpretation: Negative Thrive Assessment: Date of Thrive Assessment Date Thrive assessed 12/24/23 12/24/23 10:40 Currently or been in a relationship where the following occur: no concerns reported Const General: no acute distress and alert HENMT Ears: TM's normal bilaterally and EAC's normal Throat: Yes posterior oropharynx normal and Yes tonsils normal (no TP congestion noted) Neck Neck: Yes no lymphadenopathy and Yes supple Resp Auscultation: clear to auscultation bilaterally, no rales and no wheezes Cardio Rate: regular rate Rhythm: regular rhythm Heart sounds: no murmurs GI Palpation (GI): Soft to palpation and nontender Auscultation: normal bowel sounds General: Yes no CVA tenderness Back/Spine/Pelvis Back: no CVA tenderness Skin Rashes: no rashes Extrem General: Yes no clubbing, cyanosis or edema Assessment and Plan Assessment & Plan (1) Benign essential hypertension: Code(s): I10 - Essential (primary) hypertension Plan: Reinforced low sodium diet - goal is systolic BP of at least 120 to 130 mm or less Continue Losartan-HCT 100-12.5 mg QD, Amlodipine 10 mg QD and Hydralazine 25 mg BID Patient is again reminded to continue monitoring his BP regularly (2) Diabetes mellitus: Code(s): E11.9 - Type 2 diabetes mellitus without complications Qualifiers: Diabetes mellitus complication status: without complication Diabetes mellitus penitentiary insulin use: without penitentiary use Diabetes mellitus type: type 2 Qualified Code(s): E11.9 - Type 2 diabetes mellitus without complications Plan: HgbA1c was at 6.8% when last checked in June 2023 - goal is <7.0% Reinforced diabetic diet He was started on a trial of Farxiga 5 mg QD at his last visit to slow down progression of his diabetes and his CKD but he was not able to get the Rx filled - was denied by insurance He is advised to try getting his previously ordered follow up labs done KRISTEN and will provide him with further recommendations depending on how his lab results come out Will recheck his HgbA1c and labs in 4 months for follow up (3) Chronic kidney disease (CKD), stage III (moderate): Code(s): N18.30 - Chronic kidney disease, stage 3 unspecified Qualifiers: Chronic kidney disease stage 3 subtype: stage 3a (GFR 45-59) Qualified Code(s): N18.31 - Chronic kidney disease, stage 3a Plan: Stable - will continue monitoring patient's GFR and serum creatinine regularly (4) Mixed hyperlipidemia: Code(s): E78.2 - Mixed hyperlipidemia Plan: Advised again that his most recent cholesterol levels (LDL at 95 mg/dl) are acceptable but with diabetes, the goal is an LDL cholesterol closer to 70 mg/dl He is advised to get his previously ordered labs done KRISTEN Reinforced low cholesterol diet Will recheck his labs and fasting lipids again in 4 months for follow up (5) Elevated LFTs: Code(s): R79.89 - Other specified abnormal findings of blood chemistry Plan: Improved and have remained normal on his recent labs - was most likely related to his weight Will continue to monitor his LFTs regularly (6) Vitamin D deficiency: Code(s): E55.9 - Vitamin D deficiency, unspecified Plan: Continue Vitamin D3 2000 units QD (7) Obesity (BMI 30-39.9): Code(s): E66.9 - Obesity, unspecified Plan: Reinforced diet/exercise as tolerated/lose weight Plan Follow up in 4 months Orders: Orders Complete Blood Count Auto Diff 4 Months D64.9 - Anemia, unspecified TSH reflex Free T4 4 Months E78.00 - Pure hypercholesterolemia, unspecified Vitamin D 25-OH Total 4 Months E55.9 - Vitamin D deficiency, unspecified Comprehensive Solo. Panel Fast 4 Months E78.00 - Pure hypercholesterolemia, unspecified Lipid Panel 4 Months E78.00 - Pure hypercholesterolemia, unspecified UA CC w/rflx Micro + Cult 4 Months R30.0 - Dysuria Coding Level of Care Code Est Pt Level 3 (58667) Diagnoses Benign essential hypertension I10 Type 2 diabetes mellitus without complication, without long-term current use of insulin E11.9 Diabetes mellitus complication status: without complication Diabetes mellitus exterminator termite insulin use: without exterminator termite use Diabetes mellitus type: type 2 Stage 3a chronic kidney disease N18.31 Chronic kidney disease stage 3 subtype: stage 3a (GFR 45-59) Mixed hyperlipidemia E78.2 Elevated LFTs R79.89 Vitamin D deficiency E55.9 Obesity (BMI 30-39.9) E66.9
== END 2023-12-24 11:45 | disposition home or self-care (01) ==
PROVIDERS: PCP Internal Medicine; Visit Provider Internal Medicine
DX: I12.9 Hypertensive chronic kidney disease with stage 1 through stage 4 chronic kidney disease, or unspecified chronic kidney disease (principal); E11.22 Type 2 diabetes mellitus with diabetic chronic kidney disease; N18.31 Chronic kidney disease, stage 3a; E78.2 Mixed hyperlipidemia; R79.89 Other specified abnormal findings of blood chemistry; E55.9 Vitamin D deficiency, unspecified
CPT/HCPCS: 99213

== ENCOUNTER 2023-12-27 08:43 | Outpatient (REF) | payer BC, SELFPAY ==
[2023-12-27 09:10] LABS: MANUAL DIFF FLAG NO
[2023-12-27 10:22] LABS: Basophils Percent Auto 0.4 % (0-2); Eosinophils Absolute Auto 0.2 X10*3/uL (0.0-0.4); Eosinophils Percent Auto 2.6 % (0-4); Hematocrit 45.1 % (42.0-52.0); Hemoglobin 16.1 g/dl (14.0-18.0); Imm Gran Abs Auto 0.02 X10*3/uL (0.00-0.03); Imm Gran Pct Auto 0.2 % (0.0-0.4); Lymphocytes Absolute Auto 2.1 X10*3/uL (1.2-4.9); Lymphocytes Percent Auto 24.4 % (20-40); Mean Corpuscular HGB Conc 35.7 g/dl (31.0-36.0); Mean Corpuscular Hemoglobin 28.4 pg (27.0-33.0); Mean Corpuscular Volume 79.7 fL (80.0-98.0); Mean Platelet Volume 10.1 fL (9.4-12.4); Monocytes Absolute Auto 0.4 X10*3/uL (0.1-1.2); Monocytes Percent Auto 4.3 % (2-11); Neutrophils Absolute Auto 5.8 x10*3/uL (2.0-8.3); Neutrophils Percent Auto 68.1 % (45-73); Platelet Count 266 X10*3/uL (160-400); Red Blood Count 5.66 X10*6/uL (4.60-5.80); Red Cell Distribution Width 13.6 % (11.0-16.0); White Blood Count 8.5 X10*3/uL (4.8-10.8)
[2023-12-27 10:49] LABS: Estimated Average Glucose 117 mg/dL; Hemoglobin A1c % 5.7 % (<6.0)
[2023-12-27 11:04] LABS: Appearance Urine Turbid; Color Urine Yellow; Glucose Urine UA Negative (Negative); Leukocyte Esterase Urine Negative (Negative); Nitrite Urine Negative (Negative); UMIC TRIGGER UACC YES; Urine Blood Negative (Negative); Urine Ketones Negative (Negative); Urine Protein 30 (1+) mg/dL (Neg-Trace)
[2023-12-27 11:09] LABS: Bacteria Urine None Seen (None Seen); Hyaline Casts Urine 0-2 /LPF (0-2); RBC Urine 0-2 /HPF (0-2); Squamous Epithelial Cell Urine 0-2 /HPF (0-2); WBC Urine 0-5 /HPF (0-5)
[2023-12-27 11:11] LABS: Alanine Aminotransferase 23 U/L (0-40); Albumin Level 4.4 g/dL (3.5-5.0); Alkaline Phosphatase 104 U/L (39-117); Aspartate Amino Transferase 24 U/L (5-37); Bilirubin Total 0.8 mg/dL (0.0-1.0); Blood Urea Nitrogen 15 mg/dL (9-16); Calcium 9.7 mg/dL (8.4-10.2); Cholesterol 156 mg/dL (<200); Estimated Glomerular Filt Rate 53; Glucose Fasting 124 mg/dL (60-99); HDL Cholesterol 38 mg/dL (>40); LDL Cholesterol Calculated 92 mg/dL (<100); Total Protein 7.9 g/dL (6.5-8.0); Triglycerides 130 mg/dL (<150)
[2023-12-27 11:20] LABS: TSH reflex Free T4 0.62 uIU/mL (0.32-4.0); Vitamin D 25-OH Total 49.6 ng/mL (>30)
[2023-12-27 11:23] LABS: Creatinine Urine 267.19 mg/dL; Microalbum/Creatinine Ratio Ur 43.4 ug/mg cr (<30)
[2023-12-27 11:35] LABS: Anion Gap 18 (12-20); Carbon Dioxide 22 mmol/L (22-29); Chloride 105 mmol/L (96-108); Potassium 2.9 mmol/L (3.3-5.1); Sodium 142 mmol/L (135-145)
== END 2023-12-27 08:44 | disposition home or self-care (01) ==
LOC: HO.LAB 08:43
PROVIDERS: PCP Internal Medicine; Visit Provider Internal Medicine
DX: E11.9 Type 2 diabetes mellitus without complications (principal); E78.00 Pure hypercholesterolemia, unspecified; E55.9 Vitamin D deficiency, unspecified; I10 Essential (primary) hypertension
CPT/HCPCS: 36415; 80053; 80061; 81001; 81003; 82043; 82306; 82570; 83036; 84443; 85025

== ENCOUNTER → 2024-01-12 08:23 | Day surgery (SDC) | payer BC, SELFPAY ==
[2024-01-08 13:51] VITALS: BMI 31.5
--- NOTE | 2024-01-09 10:45 | HO.ANESPROP2 ---
Documented by User: Mela Odom NP 01/09/24 10:47 HPI - Anesthesia Eval Consult details Narrative: 48yo M for Colonoscopy Critical low K 12/27/23. Started on K supplement by PCP. [facility] Active Problems Active Problems: All Active Problems (Updated 08/15/23 @ 16:12 by DENY Yee) Family history of polyps in the colon (Acute) Pre-op examination (Acute) Colon cancer screening (Acute) Screening for prostate cancer (Acute) Mixed hyperlipidemia (Acute) Impaired fasting glucose (Acute) Vitamin D deficiency (Acute) Diabetes mellitus (Acute) Annual physical exam (Acute) Obesity (BMI 30-39.9) (Acute) Elevated LFTs (Acute) Chronic kidney disease (CKD), stage III (moderate) (Acute) Benign essential hypertension (Acute) Past Medical History Medical History Marijuana smoker Mixed hyperlipidemia Vitamin D deficiency Diabetes mellitus Obesity (BMI 30-39.9) Elevated LFTs Chronic kidney disease (CKD), stage III (moderate) Benign essential hypertension Family History Family History Father Hypertension Mother No problems noted. 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 Exam Height,Weight and Vital Signs: Height 6 ft 1 in Weight 108.465 kg Pertinent Lab Results Pertinent Lab Results: Laboratory Tests 12/27/23 09:09 WBC 8.5 Hgb 16.1 Hct 45.1 Plt Count 266 Sodium 142 Potassium 2.9 L* Chloride 105 Carbon Dioxide 22 BUN 15 Creatinine 1.44 H Assessment and Plan Assessment Anesthesia Assessment: Chart Reviewed Documented by User: Judith Mccall MD 01/12/24 09:01 PMF Active Problems Active Problems: All Active Problems (Updated 08/15/23 @ 16:12 by DENY Yee) Family history of polyps in the colon (Acute) Pre-op examination (Acute) Colon cancer screening (Acute) Screening for prostate cancer (Acute) Mixed hyperlipidemia (Acute) Impaired fasting glucose (Acute) Vitamin D deficiency (Acute) Diabetes mellitus (Acute) Annual physical exam (Acute) Obesity (BMI 30-39.9) (Acute) BMI 31.7 Elevated LFTs (Acute) Chronic kidney disease (CKD), stage III (moderate) (Acute) Benign essential hypertension (Acute) Past Medical History Medical History Marijuana smoker Mixed hyperlipidemia Vitamin D deficiency Diabetes mellitus Obesity (BMI 30-39.9) Elevated LFTs Chronic kidney disease (CKD), stage III (moderate) Benign essential hypertension Family History Family History Father Hypertension Mother No problems noted. Paternal Grandmother Stroke Son Autism Other Substance abuse Surgical History Surgical History No pertinent past surgical history Social History Social History Housing: House Alcohol intake: current Alcohol intake frequency: does not drink Patient Tobacco Use Status: Former Tobacco user Tobacco use type: Cigarette e-Cigarette/Vaping Use: Never Used Second Hand Smoke Exposure: Yes Are you DNR?: No Advance Directives: No Advance Directives Information Provided: Yes Recently lost weight without trying: No Nutrition Risks: No Nutritional Risk [facility] service: No Current occupational status: employed 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
--- NOTE | 2024-01-12 08:26 | MHC.SHP ---
Pre-Procedural Eval Section A - 24 Hr Update-Section A only Date of Service: 01/12/24 The patient is an INPATIENT: No Section B - Complete if H&P > 30 days Chief Complaint: Colon cancer screening, FH of colon polyps Relevant Family History (Specify if Yes): Yes Relevant Social History: Tobacco Use Present Medications: see Short Stay Collaborative assessment Medical History: Significant History (Mixed hyperlipidemia Vitamin D deficiency Diabetes mellitus Obesity (BMI 30-39.9) Elevated LFTs Chronic kidney disease (CKD), stage III (moderate) Benign essential hypertension) History of Previous Operations: No relevant previous surgery Allergies: Allergies Allergy/AdvReac Type Severity Reaction Status Date / Time cephalexin [Keflex] Allergy Intermediate rash Verified 12/24/23 11:36 Plan I have reviewed the history and physical and performed a pertinent physical examination on my patient. No changes have occurred unless specified. Time Spent With Patient Time: Total time managing care of this patient today ____ minutes.
[2024-01-12 08:33] VITALS: BP 137/75; PULSE 62; RESP 18; TEMP 36.2; O2SAT 99; BMI 31.7
[2024-01-12] MEDS: Lactated Ringers 1,000 ML 100 ML IVCONT (08:47)
[2024-01-12 09:09] LABS: Anion Gap 13 (12-20); Carbon Dioxide 31 mmol/L (22-29); Chloride 103 mmol/L (96-108); Potassium 2.5 mmol/L (3.3-5.1); Sodium 144 mmol/L (135-145)
--- NOTE | 2024-01-12 09:18 | PC.NURSE ---
pt k+ 2.6 he didnot take his supplement for 2 days will be cancelled by anesthesia home to take his meds and not to stop pt aware anesthesia at bedside speaking to patient
--- NOTE | 2024-01-12 09:26 | PC.NURSE ---
anesthesia and dr owens at bedside pt aware of cancellation will take his potassium when he gets home and f/u with pcp verbalized understanding
== END ==
PROVIDERS: Nurse Practitioner; PCP Internal Medicine; Visit Provider Internal Medicine Gastroenterology
DX: Z12.11 Encounter for screening for malignant neoplasm of colon (principal); Z53.8 Procedure and treatment not carried out for other reasons; E87.6 Hypokalemia
CPT/HCPCS: 36415; 80051; J2704

== ENCOUNTER 2024-04-26 16:35 | Outpatient (AMB) | payer BC, SELFPAY ==
--- NOTE | 2024-04-26 16:38 | MHC.PC.OV ---
Vital Signs 04/26/24 16:40 Height 6 ft 1 in Weight 236 lb 2 oz BMI 31.1 BP 130/90 H Blood Pressure Location Lt brachial Position Sitting Pulse 63 Pulse Source Pulse Oximeter Pulse Oximetry (%) 98 Oxygen Delivery Method Room Air Intake Visit Reasons: DM, hyperlipidemia, HTN, CKD Intake Note: Patient is here to follow up on DM, HLD, HTN, CKD. Optical Manufacturing Technician Required: No Digital Associate Media Director: Not Required per policy Accompanied by: Self / Same As Patient Allergies cephalexin [Keflex] Allergy (Intermediate, Verified 04/26/24 17:17) rash Medication List - Last Reconciled 04/26/24 by Hayden Delgado MD amlodipine 10 mg PO DAILY 90 days cholecalciferol (vitamin D3) 50 mcg PO DAILY 90 days hydralazine 25 mg PO BID 30 days losartan-hydrochlorothiazide 100-12.5 mg 1 tab PO DAILY 90 days potassium chloride ER (Klor-Con M) 20 mEq PO DAILY 90 days Tobacco use date assessed: 04/26/24 Dental Screening Dental Screen Date: 12/24/23 HPI DM, hyperlipidemia, HTN, CKD HPI Details Patient comes in today for his follow up visit States that he feels okay He denies any headaches or dizziness Denies any chest pains, no SOB No nausea/vomiting, no abdominal pain No change in bowel habits noted He was not able to get his follow up labs done prior to his visit today - states that he will try to get them done KRISTEN States that his colonoscopy was recently cancelled due to his low serum potassium level and he was advised to speak to his PCP about this to get this addressed and then to call GI back to reschedule his colonoscopy then [facility] Medical History (Updated 04/27/24 @ 04:14 by Hayden Delgado MD) Hypokalemia Marijuana smoker Mixed hyperlipidemia Vitamin D deficiency Diabetes mellitus Obesity (BMI 30-39.9) Elevated LFTs Chronic kidney disease (CKD), stage III (moderate) Benign essential hypertension Surgical History No pertinent past surgical history Family History Father Hypertension Mother No problems noted. 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 Davy Marina, Sagrario Mueller, Herber Chen and colleagues, with an educational christine from [employer]. Review of Systems Const Denies chills, Denies fatigue, Denies fever(s), Denies headache(s) and Denies weakness ENT Denies dysphagia, Denies dizziness, Denies otalgia, Denies headache(s), Denies neck pain, Denies odynophagia, Reports tinnitus (on and off in both ears) and Denies sore throat Card Denies chest pain, Denies palpitations and Denies dyspnea Resp Denies cough, Denies dyspnea and Denies wheezing GI Denies abdominal pain, Denies constipation, Denies dysphagia, Denies heartburn, Denies diarrhea, Denies nausea, Denies odynophagia and Denies vomiting Denies dysuria, Denies nocturia and Denies urinary frequency Musc Denies back pain, Denies arthralgias, Denies muscle weakness and Denies neck pain Skin/Breast Denies rash Neuro Denies dizziness, Denies headache(s) and Denies weakness Endo Denies fatigue and Denies palpitations Aller/Immun Denies wheezing Physical exam (Primary Care) Vital Signs: Last Vital Signs Pulse 63 04/26/24 16:40 BP 130/90 H 04/26/24 16:40 Pulse Ox 98 04/26/24 16:40 Oxygen Delivery Method Room Air 04/26/24 16:40 BMI result Body Mass Index 31.1 Tobacco/Smoking Status: Tobacco use Status Tobacco use date assessed 04/26/24 04/26/24 16:54 Patient Tobacco Use Status Former Tobacco user 04/26/24 16:54 Tobacco use type Cigarette 04/26/24 16:54 e-Cigarette/Vaping Use Never Used 04/26/24 16:54 Thrive Assessment: Date of Thrive Assessment Date Thrive assessed 12/24/23 04/26/24 16:54 Const General: no acute distress and alert HENMT Ears: TM's normal bilaterally and EAC's normal Throat: Yes posterior oropharynx normal and Yes tonsils normal (no TP congestion noted) Neck Neck: Yes no lymphadenopathy and Yes supple Thyroid: Thyroid normal Resp Auscultation: clear to auscultation bilaterally, no rales and no wheezes Cardio Rate: regular rate Rhythm: regular rhythm Heart sounds: no murmurs GI Palpation (GI): Soft to palpation and nontender Auscultation: normal bowel sounds General: Yes no CVA tenderness Back/Spine/Pelvis Back: no CVA tenderness Thoracic/Lumbar Spine: No lumbar spinal tenderness Skin Rashes: no rashes Extrem General: Yes no clubbing, cyanosis or edema Results AMB Hemoglobin A1c AMB Hemoglobin A1c 6.1 % Last Edit by KARLA Noel on 04/26/24 17:00 Results Reviewed Results Reviewed: Laboratory Last Values Hgb A1c (Clinic) 6.1 % (4.0-6.0) H 04/26/24 16:38 Assessment and Plan Assessment & Plan (1) Diabetes mellitus: Code(s): E11.9 - Type 2 diabetes mellitus without complications Qualifiers: Diabetes mellitus complication status: with kidney complications 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: without halfway use Diabetes mellitus type: type 2 Diabetes mellitus complication detail: with chronic kidney disease Chronic kidney disease stage: stage 3 (moderate) Chronic kidney disease stage 3 subtype: stage 3a (GFR 45-59) Qualified Code(s): E11.22 - Type 2 diabetes mellitus with diabetic chronic kidney disease; N18.31 - Chronic kidney disease, stage 3a Plan: In-office HgbA1c done today is at 6.1% (HgbA1c was at 5.7% on his labs done back in December 2023) - goal is at least <6.4% if he wishes to continue avoiding taking Rx for his blood sugar although we have recommended that he take sometime to slow down his progression and in light of his renal insufficiency Reinforced diabetic diet He was started on a trial of Farxiga 5 mg QD at a previous visit to slow down progression of his diabetes and his CKD but he was not able to get the Rx filled as it was denied by his insurance Will have him recheck his labs KRISTEN first to see how his renal function is currently before deciding on an appropriate Rx for him (2) Benign essential hypertension: Code(s): I10 - Essential (primary) hypertension Plan: Reinforced low sodium diet - goal is systolic BP of at least 120 to 130 mm or less Continue Losartan-HCT 100-12.5 mg QD, Amlodipine 10 mg QD and Hydralazine 25 mg BID Patient is again reminded to continue monitoring his BP regularly (3) Chronic kidney disease (CKD), stage III (moderate): Code(s): N18.30 - Chronic kidney disease, stage 3 unspecified Qualifiers: Chronic kidney disease stage 3 subtype: stage 3a (GFR 45-59) Qualified Code(s): N18.31 - Chronic kidney disease, stage 3a Plan: Will continue monitoring patient's GFR and serum creatinine regularly - have advised him to get his previously ordered labs done KRISTEN (4) Hypokalemia: Code(s): E87.6 - Hypokalemia Plan: Continue Klor-Con 20 meq QD Will recheck his serum potassium level KRISTEN for follow up (5) Mixed hyperlipidemia: Code(s): E78.2 - Mixed hyperlipidemia Plan: Have advised patient again that his most recent cholesterol levels in December 2023 (LDL at 92 mg/dl) are acceptable but with his diabetes, the goal is LDL cholesterol closer to 70 mg/dl He is advised to get his previously ordered follow up labs done KRISTEN Reinforced low cholesterol diet Will recheck his labs and fasting lipids again in 4 months for follow up (6) Elevated LFTs: Code(s): R79.89 - Other specified abnormal findings of blood chemistry Plan: Improved and his LFTs have remained normal on his labs done back in December 2023 - was most likely related to his weight Will continue to monitor his LFTs regularly (7) Vitamin D deficiency: Code(s): E55.9 - Vitamin D deficiency, unspecified Plan: Continue Vitamin D3 2000 units QD (8) Obesity (BMI 30-39.9): Code(s): E66.9 - Obesity, unspecified Plan: Reinforced diet/exercise as tolerated/lose weight Plan Follow up in 4 months Orders: Orders AMB Hemoglobin A1c 04/26/24 E11.9 - Type 2 diabetes mellitus without complications Comprehensive [place]. Panel Fast 4 Months E78.00 - Pure hypercholesterolemia, unspecified Lipid Panel 4 Months E78.00 - Pure hypercholesterolemia, unspecified Hemoglobin A1c 4 Months E11.9 - Type 2 diabetes mellitus without complications TSH reflex Free T4 4 Months E78.00 - Pure hypercholesterolemia, unspecified UA CC w/rflx Micro + Cult 4 Months R30.0 - Dysuria Vitamin D 25-OH Total 4 Months E55.9 - Vitamin D deficiency, unspecified Complete Blood Count Auto Diff 4 Months D64.9 - Anemia, unspecified Microalbumin, Random (w Creat) 4 Months E11.9 - Type 2 diabetes mellitus without complications Vitamin B12 and Folate 4 Months E53.8 - Deficiency of other specified B group vitamins Coding Level of Care Code Est Pt Level 4 (05205) Complex EM visit Add On G2211 Diagnoses Type 2 diabetes mellitus with stage 3a chronic kidney disease, without long-term current use of insulin E11.22; N18.31 Diabetes mellitus complication status: with kidney complications Diabetes mellitus halfway insulin use: without intermodal truck driver use Diabetes mellitus type: type 2 Diabetes mellitus complication detail: with chronic kidney disease Chronic kidney disease stage: stage 3 (moderate) Chronic kidney disease stage 3 subtype: stage 3a (GFR 45-59) Benign essential hypertension I10 Stage 3a chronic kidney disease N18.31 Chronic kidney disease stage 3 subtype: stage 3a (GFR 45-59) Hypokalemia E87.6 Mixed hyperlipidemia E78.2 Elevated LFTs R79.89 Vitamin D deficiency E55.9 Obesity (BMI 30-39.9) E66.9
[2024-04-26 16:40] VITALS: BP 130/90; PULSE 63; O2SAT 98; BMI 31.1
== END 2024-04-26 17:20 | disposition home or self-care (01) ==
PROVIDERS: PCP Internal Medicine; Visit Provider Internal Medicine
DX: E11.9 Type 2 diabetes mellitus without complications (principal)
CPT/HCPCS: 83036; 99214

== ENCOUNTER 2024-04-27 07:47 | Outpatient (REF) | payer BC, SELFPAY ==
[2024-04-27 08:01] LABS: MANUAL DIFF FLAG NO
[2024-04-27 08:38] LABS: Basophils Percent Auto 0.3 % (0-2); Eosinophils Absolute Auto 0.2 X10*3/uL (0.0-0.4); Eosinophils Percent Auto 2.1 % (0-4); Hemoglobin 15.2 g/dl (14.0-18.0); Imm Gran Abs Auto 0.04 X10*3/uL (0.00-0.03); Imm Gran Pct Auto 0.4 % (0.0-0.4); Lymphocytes Absolute Auto 1.8 X10*3/uL (1.2-4.9); Lymphocytes Percent Auto 19.3 % (20-40); Mean Corpuscular HGB Conc 35.3 g/dl (31.0-36.0); Mean Corpuscular Hemoglobin 28.7 pg (27.0-33.0); Mean Corpuscular Volume 81.3 fL (80.0-98.0); Mean Platelet Volume 9.7 fL (9.4-12.4); Monocytes Absolute Auto 0.5 X10*3/uL (0.1-1.2); Monocytes Percent Auto 4.9 % (2-11); Neutrophils Absolute Auto 6.9 x10*3/uL (2.0-8.3); Platelet Count 256 X10*3/uL (160-400); Red Blood Count 5.29 X10*6/uL (4.60-5.80); Red Cell Distribution Width 13.5 % (11.0-16.0); White Blood Count 9.4 X10*3/uL (4.8-10.8)
[2024-04-27 08:46] LABS: Appearance Urine Clear; Color Urine Yellow; Glucose Urine UA Negative (Negative); Leukocyte Esterase Urine Negative (Negative); Nitrite Urine Negative (Negative); Specific Gravity - Urine 1.025 (1.005-1.025); UMIC TRIGGER UACC YES; Urine Blood Negative (Negative); Urine Ketones Trace mg/dL (Negative); Urine Protein 100 (2+) mg/dL (Neg-Trace)
[2024-04-27 09:35] LABS: Bacteria Urine None Seen (None Seen); Hyaline Casts Urine 0-2 /LPF (0-2); RBC Urine 0-2 /HPF (0-2); Squamous Epithelial Cell Urine 0-2 /HPF (0-2); WBC Urine 0-5 /HPF (0-5)
[2024-04-27 09:37] LABS: TSH reflex Free T4 0.93 uIU/mL (0.32-4.0); Vitamin D 25-OH Total 57.3 ng/mL (>30)
[2024-04-27 09:39] LABS: Alanine Aminotransferase 21 U/L (0-40); Albumin Level 4.5 g/dL (3.5-5.0); Alkaline Phosphatase 95 U/L (39-117); Anion Gap 15 (12-20); Aspartate Amino Transferase 20 U/L (5-37); Bilirubin Total 0.9 mg/dL (0.0-1.0); Blood Urea Nitrogen 15 mg/dL (9-16); Calcium 9.6 mg/dL (8.4-10.2); Carbon Dioxide 27 mmol/L (22-29); Chloride 103 mmol/L (96-108); Cholesterol 151 mg/dL (<200); Estimated Glomerular Filt Rate > 60; Glucose Fasting 133 mg/dL (60-99); HDL Cholesterol 43 mg/dL (>40); LDL Cholesterol Calculated 83 mg/dL (<100); Potassium 2.8 mmol/L (3.3-5.1); Sodium 142 mmol/L (135-145); Total Protein 7.6 g/dL (6.5-8.0); Triglycerides 128 mg/dL (<150)
== END 2024-04-27 07:48 | disposition home or self-care (01) ==
LOC: HO.LAB 07:47
PROVIDERS: PCP Internal Medicine; Visit Provider Internal Medicine
DX: E78.00 Pure hypercholesterolemia, unspecified (principal); D64.9 Anemia, unspecified; E55.9 Vitamin D deficiency, unspecified
CPT/HCPCS: 36415; 80053; 80061; 81001; 82306; 84443; 85025

== ENCOUNTER 2024-10-05 07:19 | Outpatient (REF) | payer BC, SELFPAY ==
[2024-10-05 07:37] LABS: MANUAL DIFF FLAG NO
[2024-10-05 08:02] LABS: Basophils Percent Auto 0.2 % (0-2); Eosinophils Absolute Auto 0.2 X10*3/uL (0.0-0.4); Eosinophils Percent Auto 2.3 % (0-4); Hematocrit 43.4 % (42.0-52.0); Hemoglobin 14.9 g/dl (14.0-18.0); Imm Gran Abs Auto 0.02 X10*3/uL (0.00-0.03); Imm Gran Pct Auto 0.2 % (0.0-0.4); Lymphocytes Absolute Auto 2.5 X10*3/uL (1.2-4.9); Lymphocytes Percent Auto 28.2 % (20-40); Mean Corpuscular HGB Conc 34.3 g/dl (31.0-36.0); Mean Corpuscular Hemoglobin 28.7 pg (27.0-33.0); Mean Corpuscular Volume 83.5 fL (80.0-98.0); Mean Platelet Volume 9.8 fL (9.4-12.4); Monocytes Absolute Auto 0.5 X10*3/uL (0.1-1.2); Monocytes Percent Auto 6.2 % (2-11); Neutrophils Absolute Auto 5.5 x10*3/uL (2.0-8.3); Neutrophils Percent Auto 62.9 % (45-73); Platelet Count 255 X10*3/uL (160-400); Red Cell Distribution Width 13.7 % (11.0-16.0); White Blood Count 8.7 X10*3/uL (4.8-10.8)
[2024-10-05 08:11] LABS: Estimated Average Glucose 114 mg/dL; Hemoglobin A1C 143.1207 umol/L; Hemoglobin A1c % 5.6 % (<6.0); Total Hemoglobin (HGBA1C) 3809.9121 umol/L
[2024-10-05 08:22] LABS: Appearance Urine Clear; Color Urine Yellow; Glucose Urine UA Negative (Negative); Leukocyte Esterase Urine Negative (Negative); Nitrite Urine Negative (Negative); PH 6.5 (5.0-9.0); Specific Gravity - Urine 1.025 (1.005-1.025); UMIC TRIGGER UACC YES; Urine Blood Negative (Negative); Urine Ketones Negative (Negative); Urine Protein 30 (1+) mg/dL (Neg-Trace)
[2024-10-05 08:28] LABS: Bacteria Urine None Seen (None Seen); Hyaline Casts Urine 0-2 /LPF (0-2); RBC Urine 0-2 /HPF (0-2); Squamous Epithelial Cell Urine 0-2 /HPF (0-2); WBC Urine 0-5 /HPF (0-5)
[2024-10-05 08:31] LABS: Creatinine Urine 323.33 mg/dL; Microalbum/Creatinine Ratio Ur 28.7 ug/mg cr (<30)
[2024-10-05 08:39] LABS: Albumin Level 4.3 g/dL (3.5-5.0); Anion Gap 14 (12-20); Bilirubin Total 0.9 mg/dL (0.0-1.0); Blood Urea Nitrogen 18 mg/dL (9-16); Calcium 9.7 mg/dL (8.4-10.2); Carbon Dioxide 28 mmol/L (22-29); Chloride 103 mmol/L (96-108); Cholesterol 153 mg/dL (<200); Estimated Glomerular Filt Rate 51; Glucose Fasting 124 mg/dL (60-99); Glucose Random 122 mg/dL (60-115); HDL Cholesterol 41 mg/dL (>40); LDL Cholesterol Calculated 94 mg/dL (<100); Potassium 3.2 mmol/L (3.3-5.1); Sodium 142 mmol/L (135-145); Total Protein 7.4 g/dL (6.5-8.0); Triglycerides 91 mg/dL (<150)
[2024-10-05 08:40] LABS: Aspartate Amino Transferase 25 U/L (5-37)
[2024-10-05 08:53] LABS: Folate 7.3 ng/mL (> or = 4.0); TSH reflex Free T4 0.75 uIU/mL (0.32-4.0); Vitamin B12 691 pg/mL (200-900); Vitamin D 25-OH Total 46.8 ng/mL (>30)
[2024-10-05 09:15] LABS: Alanine Aminotransferase 24 U/L (0-40); Alkaline Phosphatase 97 U/L (39-117)
== END 2024-10-05 07:20 | disposition home or self-care (01) ==
LOC: HO.LAB 07:19
PROVIDERS: PCP Internal Medicine; Visit Provider Internal Medicine
DX: E11.9 Type 2 diabetes mellitus without complications (principal); E87.6 Hypokalemia; D64.9 Anemia, unspecified; E78.00 Pure hypercholesterolemia, unspecified; E53.8 Deficiency of other specified B group vitamins; E55.9 Vitamin D deficiency, unspecified
CPT/HCPCS: 36415; 80048; 80053; 80061; 81001; 82043; 82306; 82570; 82607; 82746; 83036; 84443; 85025; 96127

== ENCOUNTER 2024-10-05 13:32 | Outpatient (AMB) | payer BC, SELFPAY ==
--- NOTE | 2024-10-05 13:34 | MHC.PC.OV ---
Vital Signs 10/05/24 13:35 Height 6 ft 1 in Weight 229 lb BMI 30.2 BP 130/76 Blood Pressure Location Lt brachial Position Sitting Pulse 63 Pulse Source Pulse Oximeter Pulse Oximetry (%) 98 Oxygen Delivery Method Room Air Intake Visit Reasons: PE Intake Note: Patient is here today for a physical. Pt decline flu shot today. Resident Director Required: No Paint Maker: Not Required per policy Accompanied by: Self / Same As Patient Allergies cephalexin [Keflex] Allergy (Intermediate, Verified 10/05/24 14:07) rash Medication List - Last Reconciled 10/05/24 by Hayden Delgado MD amlodipine 10 mg PO DAILY 90 days cholecalciferol (vitamin D3) 50 mcg PO DAILY 90 days hydralazine 25 mg PO BID 30 days losartan-hydrochlorothiazide 100-12.5 mg 1 tab PO DAILY 90 days potassium chloride ER (Klor-Con M) 40 mEq (2 x 20 mEq) PO DAILY 90 days Tobacco use date assessed: 10/05/24 Dental Screening Dental Screen Date: 12/24/23 HPI PE HPI Details Patient comes in today for his annual physical examination States that he feels okay He denies any headaches or dizziness Denies any chest pains, no SOB No nausea/vomiting, no abdominal pain No change in bowel habits noted He denies any acute urinary symptoms He had his follow-up labs done earlier today - to discuss his results He has not yet been able to get his colonoscopy rescheduled and done since his procedure was postponed back in January 2024 when his labs revealed a very low serum potassium level [facility] Medical History Hypokalemia Marijuana smoker Mixed hyperlipidemia Vitamin D deficiency Diabetes mellitus Obesity (BMI 30-39.9) Elevated LFTs Chronic kidney disease (CKD), stage III (moderate) Benign essential hypertension Surgical History No pertinent past surgical history Family History Father Hypertension Mother No problems noted. 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 1. Little interest or pleasure in doing things: not at all 2. Feeling down, depressed, or hopeless: not at all 3. Trouble falling or staying asleep, or sleeping too much: not at all 4. Feeling tired or having little energy: not at all 5. Poor appetite or overeating: not at all 6. Feeling bad about yourself - or that you are a failure or have let yourself or your family down: not at all 7. Trouble concentrating on things, such as reading the newspaper or watching television: not at all 8. Moving or speaking so slowly that other people could have noticed. Or the opposite - being so fidgety or restless that you have been moving around a lot more than usual: not at all 9. Thoughts that you would be better off or of hurting yourself in some way: not at all Total score: 0 Depression Screening Interpretation: Negative Depression Screening Done: Yes 18934 - PHQ-9 Billing: Yes Source: Developed by Drs. Davy Marina, Sagrario Mueller, Herber Chen and colleagues, with an educational christine from [email or web address]. Thrive Questionnaire Date Thrive assessed: 10/05/24 I am a: Patient What is your living situation today?: I have a steady place to live Within the past 12 months, did the food you bought not last and you didn't have the money to get more?: I choose not to answer this question Within the past 12 months, did you worry whether your food would run out before you got money to buy more?: I choose not to answer this question Do you have trouble paying for medicines?: No Do you have trouble getting transportation to medical appointments?: No Do you have trouble paying your heating and electricity bill?: No Do you have trouble taking care of your child, family member or friend?: No Do you have trouble with day-to-day activities such as bathing, preparing meals, shopping, managing finances, etc.?: No Are you currently unemployed and looking for a job?: No Are you interested in more education?: No Please select the resources that you would like help with: None Currently or been in a relationship where the following occur: I choose not to answer THRIVE Score: 0 AUDIT C Alcohol Use Questionnaire (AUDIT-C) 1. How often do you have a drink containing alcohol?: Never 3. How often do you have six or more drinks on one occasion?: Never Total Score: 0 Score Reviewed/Action Taken: Yes KRISTIN-7 AMB Questionnaire KRISTIN-7 Date KRISTIN - 7 assessed: 10/05/24 Feeling nervous, anxious, or on edge: 0 = Not at all Not being able to stop or control worryin = Not at all Worrying too much about different things: 0 = Not at all Trouble relaxin = Not at all Being so restless that it is hard to sit still: 0 = Not at all Becoming easily annoyed or irritable: 0 = Not at all Feeling afraid as if something awful might happen: 0 = Not at all Total KRISTIN-7 score (0-4 normal; 5-9 mild; 10-14 moderate; 15-21 severe): 0 Source: Developed by Drs. Davy Marina, Sagrario Mueller, Herber Chen and colleagues, with an educational christine from [email or web address]. Review of Systems Const Denies chills, Denies fatigue, Denies fever(s), Denies headache(s), Denies malaise and Denies weakness Eyes Denies blurry vision, Denies change in vision, Denies irritation and Denies itchy eyes ENT Denies dysphagia, Denies dizziness, Denies otalgia, Denies headache(s), Denies nasal congestion, Denies neck pain, Denies odynophagia and Denies sore throat Card Denies chest pain, Denies rapid heart rate, Denies irregular heart rhythm, Denies palpitations and Denies dyspnea Resp Denies chest congestion, Denies cough, Denies dyspnea and Denies wheezing GI Denies abdominal pain, Denies bloating, Denies constipation, Denies dysphagia, Denies heartburn, Denies diarrhea, Denies nausea, Denies odynophagia and Denies vomiting Denies hematuria, Denies difficulty urinating, Denies dysuria, Denies urinary frequency and Denies urinary urgency Musc Denies back pain, Denies arthralgias, Denies joint swelling, Denies muscle weakness and Denies neck pain Skin/Breast Denies change in pigmentation, Denies lesions, Denies rash and Denies unusual bruising Neuro Denies dizziness, Denies headache(s), Denies paresthesias and Denies weakness Endo Denies fatigue and Denies palpitations Aller/Immun Denies itchy eyes and Denies wheezing Physical exam (Primary Care) Vital Signs: Last Vital Signs Pulse 63 10/05/24 13:35 BP 130/76 10/05/24 13:35 Pulse Ox 98 10/05/24 13:35 Oxygen Delivery Method Room Air 10/05/24 13:35 BMI result Body Mass Index 30.2 Tobacco/Smoking Status: Tobacco use Status Tobacco use date assessed 10/05/24 10/05/24 13:39 Patient Tobacco Use Status Former Tobacco user 10/05/24 13:39 Tobacco use type Cigarette 10/05/24 13:39 e-Cigarette/Vaping Use Never Used 10/05/24 13:39 PHQ-9: PHQ-9 Score PHQ-9: Total score 0 10/06/24 12:05 Depression Screening Interpretation: Negative Thrive Assessment: Date of Thrive Assessment Date Thrive assessed 10/05/24 10/05/24 13:39 Currently or been in a relationship where the following occur: I choose not to answer Const General: no acute distress, alert and awake Orientation/consciousness: patient oriented x3 HENMT Head: Yes normocephalic and Yes atraumatic Ears: external ears normal, TM's normal bilaterally and EAC's normal General nose exam: No nasal discharge present Face and sinus: Yes normal facial exam and Yes sinuses nontender Teeth and gingiva: dentition normal Throat: Yes posterior oropharynx normal and Yes tonsils normal (no TP congestion) Eyes Eyelids: Yes eyelids normal Conjunctivae: conjunctivae normal Pupils: Equal, round and reactive pupils present EOM: EOMs intact bilaterally Neck Neck: Yes supple and No lymphadenopathy Thyroid: Thyroid normal Resp Auscultation: clear to auscultation bilaterally, no rales and no wheezes Cardio Rate: regular rate Rhythm: regular rhythm Heart sounds: no murmurs GI Palpation (GI): Soft to palpation, nontender and No hepatosplenomegaly present Auscultation: normal bowel sounds General: Yes no CVA tenderness Back/Spine/Pelvis Back: no CVA tenderness Thoracic/Lumbar Spine: thoracic and lumbar spine normal to inspection Skin Lesions: no lesions Rashes: no rashes Neuro General: patient oriented x3, moves all extremities, no focal motor deficits and CN's II-XI intact bilaterally Cranial nerves: Yes Equal, round and reactive pupils present Cognition (Neuro): normal cognition Gait exam (Neuro): Normal gait present Extrem General: Yes no clubbing, cyanosis or edema Results Reviewed Results Reviewed: Laboratory Tests 06/24/23 06/24/23 10/05/24 12:14 12:15 07:30 WBC 8.4 Hgb 14.6 Hct 42.0 Plt Count 262 Sodium 144 Potassium 3.0 L Creatinine 1.35 Estimated GFR 57 Fasting Glucose 123 H Hemoglobin A1c % 6.8 H Calcium 9.5 AST 20 ALT 26 Triglycerides 117 Cholesterol 157 LDL Cholesterol, Calc 95 HDL Cholesterol 39 L 25-OH Vitamin D Total 42.4 Vitamin B12 TSH 0.93 Ur Specific [place] 1.025 1.025 Urine Protein 30 (1+) H 30 (1+) H Urine Glucose (UA) Negative Negative Urine Blood Negative Negative Urine Nitrite Negative Negative Ur Leukocyte Esterase Negative Negative Microalb/Creat Ratio 31.9 H 28.7 10/05/24 07:35 WBC 8.7 Hgb 14.9 Hct 43.4 Plt Count 255 Sodium 142 Potassium 3.2 L Creatinine 1.48 H Estimated GFR 51 Fasting Glucose 124 H Hemoglobin A1c % 5.6 Calcium 9.7 AST 25 ALT 24 Triglycerides 91 Cholesterol 153 LDL Cholesterol, Calc 94 HDL Cholesterol 41 25-OH Vitamin D Total 46.8 Vitamin B12 691 TSH 0.75 Ur Specific [place] Urine Protein Urine Glucose (UA) Urine Blood Urine Nitrite Ur Leukocyte Esterase Microalb/Creat Ratio Coding Level of Care Code Est Pt Level 4 (41127) Diagnoses Annual physical exam Z00.00 Type 2 diabetes mellitus with stage 3a chronic kidney disease, without long-term current use of insulin E11.22; N18.31 Diabetes mellitus type: type 2 Diabetes mellitus intermediate project manager insulin use: without intermediate project manager use Diabetes mellitus complication status: with kidney complications Diabetes mellitus complication detail: with chronic kidney disease Chronic kidney disease stage: stage 3 (moderate) Chronic kidney disease stage 3 subtype: stage 3a (GFR 45-59) Benign essential hypertension I10 Stage 3a chronic kidney disease N18.31 Chronic kidney disease stage 3 subtype: stage 3a (GFR 45-59) Mixed hyperlipidemia E78.2 Hypokalemia E87.6 Elevated LFTs R79.89 Vitamin D deficiency E55.9 Obesity (BMI 30-39.9) E66.9 Additional Codes PHQ-9 - 04015 - PHQ-9 Billing: Yes ([id number]) Assessment & Plan Assessment & Plan (1) Annual physical exam: Code(s): Z00.00 - Encounter for general adult medical examination without abnormal findings Category: Medical Plan: Results of his labs done earlier this morning reviewed and discussed with patient He has not yet been able to get his colonoscopy scheduled or done after his procedure was postponed back in January 2024 when his labs revealed a very low serum potassium level Patient is instructed to reach out to Gastroenterology to have this rescheduled right away as his potassium level is now back to normal on his recent labs (2) Diabetes mellitus: Code(s): E11.9 - Type 2 diabetes mellitus without complications Category: Medical Qualifiers: Diabetes mellitus type: type 2 Diabetes mellitus care home insulin use: without intermediate project manager use Diabetes mellitus complication status: with kidney complications Diabetes mellitus complication detail: with chronic kidney disease Chronic kidney disease stage: stage 3 (moderate) Chronic kidney disease stage 3 subtype: stage 3a (GFR 45-59) Qualified Code(s): E11.22 - Type 2 diabetes mellitus with diabetic chronic kidney disease; N18.31 - Chronic kidney disease, stage 3a Plan: His HgbA1c was at 5.6% on his labs done earlier this morning (in-office HgbA1c was previously at 6.1% a few months ago on 04/26/2024) - goal is at least <6.5% if he wishes to continue to avoid taking any Rx for his blood sugar although we have recommended previously that he start on some Rx to help slow down the progression of his diabetes and in light of his renal insufficiency Reinforced diabetic diet He was started on a trial of Farxiga 5 mg QD at a previous visit but he was not able to get the Rx filled as it was denied by his insurance As he was able to get his HgbA1c down to his current level at 5.6%, will hold off again on any Rx at this time (3) Benign essential hypertension: Code(s): I10 - Essential (primary) hypertension Category: Medical Plan: Reinforced low sodium diet - goal is systolic BP of at least 120 to 130 mm or less Continue Losartan-HCT 100-12.5 mg QD, Amlodipine 10 mg QD and Hydralazine 25 mg BID Patient is again reminded to continue monitoring his BP regularly (4) Chronic kidney disease (CKD), stage III (moderate): Code(s): N18.30 - Chronic kidney disease, stage 3 unspecified Category: Medical Qualifiers: Chronic kidney disease stage 3 subtype: stage 3a (GFR 45-59) Qualified Code(s): N18.31 - Chronic kidney disease, stage 3a Plan: His renal function appears to be stable so far on his recent labs Will continue to monitor his renal function and labs regularly (5) Mixed hyperlipidemia: Code(s): E78.2 - Mixed hyperlipidemia Category: Medical Plan: Patient's cholesterol levels are near or at goal on his labs done earlier today Reinforced low cholesterol diet Will recheck his labs and fasting lipids again in 4 months for follow up (6) Hypokalemia: Code(s): E87.6 - Hypokalemia Category: Medical Plan: Patient's serum potassium level is still slightly low on his most recent labs at 3.2 mmol/L Continue potassium chloride ER 40 mEq QD Will recheck his serum potassium level and electrolytes in 4 months for follow-up (7) Elevated LFTs: Code(s): R79.89 - Other specified abnormal findings of blood chemistry Category: Medical Plan: His LFTs are normal on his recent labs Will continue to monitor his LFTs regularly (8) Vitamin D deficiency: Code(s): E55.9 - Vitamin D deficiency, unspecified Category: Medical Plan: Continue Vitamin D3 2000 units QD (9) Obesity (BMI 30-39.9): Code(s): E66.9 - Obesity, unspecified Category: Medical Plan: Reinforced diet/exercise as tolerated/lose weight Plan Follow up in 4 months Orders: Orders Comprehensive [place]. Panel Fast 4 Months E78.00 - Pure hypercholesterolemia, unspecified Microalbumin, Random (w Creat) 4 Months E11.9 - Type 2 diabetes mellitus without complications TSH reflex Free T4 4 Months E78.00 - Pure hypercholesterolemia, unspecified UA CC w/rflx Micro + Cult 4 Months R30.0 - Dysuria Complete Blood Count Auto Diff 4 Months D64.9 - Anemia, unspecified Lipid Panel 4 Months E78.00 - Pure hypercholesterolemia, unspecified Hemoglobin A1c 4 Months E11.9 - Type 2 diabetes mellitus without complications Vitamin D 25-OH Total 4 Months E55.9 - Vitamin D deficiency, unspecified Magnesium 4 Months E83.42 - Hypomagnesemia
[2024-10-05 13:35] VITALS: BP 130/76; PULSE 63; O2SAT 98; BMI 30.2
== END 2024-10-05 14:15 | disposition home or self-care (01) ==
PROVIDERS: PCP Internal Medicine; Visit Provider Internal Medicine
DX: Z00.00 Encounter for general adult medical examination without abnormal findings (principal); I12.9 Hypertensive chronic kidney disease with stage 1 through stage 4 chronic kidney disease, or unspecified chronic kidney disease; E11.22 Type 2 diabetes mellitus with diabetic chronic kidney disease; N18.31 Chronic kidney disease, stage 3a; E78.2 Mixed hyperlipidemia; E66.9 Obesity, unspecified; Z68.30 Body mass index [BMI] 30.0-30.9, adult; E87.6 Hypokalemia; R79.89 Other specified abnormal findings of blood chemistry; E55.9 Vitamin D deficiency, unspecified

== ENCOUNTER 2025-02-04 07:34 | Outpatient (REF) | payer BC, SELFPAY ==
--- OUTSIDE RECORDS SUMMARY | 2025-02-04 07:36 | XMS_ITS | Clinical Summary ---
Author Organization [facility] Address [address] [place] [address] Care Team Providers Care Certified Lactation Educator Name Role Phone Hayden Delgado MD Primary Care Provider +1- [phone] Allergies No known active allergies Medications No known medications Immunizations Immunization Administration Dates Next Due Tdap 10/24/2024 Social History Tobacco Use Types Packs/Day Years Used Date Smoking Tobacco: Never Assessed Sex and Gender Information Value Date Recorded Sex Assigned at Male 10/24/2024 8:41 PM EST Legal Sex Male 6:46 PM EST Gender Identity Male 10/24/2024 8:41 PM EST Sexual Orientation Heterosexual (straight) 10/24 8:41 PM EST Last Filed Vital Signs Vital Sign Reading Time Taken Comments Blood Pressure 148/77 10/25/2024 2:09 AM EST Pulse 85 10/25/2024 2:09 AM EST Temperature 35.9 ??C (96.7 ??F) 10/25/2024 2:09 AM ES T Respiratory Rate 18 10/25/2024 2:09 AM EST Oxygen Saturation 98% 10/25/2024 2:09 AM EST Inhaled Oxygen Concentration - - Weight - - Height - - Body Mass Index - - Plan of Treatment Health Maintenance Due Date Last Done Comments Hepatitis C Virus Screening 1976 HIV Screening 1989 Hepatitis B Vaccines (1 of 3 - 19+ 3-dose series) 1995 Colonoscopy 2021 Influenza Vaccine 05/13/2024 COVID-19 Vaccine ( - 2023-2 5 season) 2024 DTaP/Tdap/Td Vaccines (2 - T d or Tdap) 10/24/2034 10/24/2024 Pneumococcal Vaccine: Pediat radha (0-5 Years) and At-Risk Patients (6 to 49 Years) Aged Out No longer eligible b ased on patient's age to complete this topic Insurance [facility] OUT OF STATE - PPO Care Teams Certified Lactation Educator Relationship Specialty Start Date End Date Hayden Delgado MD [address] [place] [address] Dr Gan [address] [place] [address] [place] [address] PCP - General Internal Medicine 10/24/24
--- OUTSIDE RECORDS SUMMARY | 2025-02-04 07:36 | XMS_ITS ---
Author Name [facility] Organization Unknown Results Test Name/Text Value Interpretation Date Range Source fentaNYL+Norfentanyl Ur Ql Scn Normal [id number] - [facility] Cannabinoids Ur Ql Scn>50 ng/mL Abnormal [id number] - [facility] Amphetamines Ur Ql Normal [id number] - [facility] PCP Ur Ql Scn>25 ng/mL Normal [id number] - [facility] Opiates Ur Ql Scn>300 ng/mL Normal [id number] - [facility] Benzodiaz Ur Ql Scn>200 ng/mL Normal [id number] - [facility] BZE Ur Ql Normal [id number] - [facility] Phosphate SerPl-mCnc 0.8mg/dL Critically low [id number] 2 .7 - 4.5 [facility] Ca-I SerPl-mCnc 1.2mmol/L Normal [id number] 1.17 - 1.33 [facility] CK SerPl-cCnc 195U/L Normal [id number] 24 - [address] Magnesium SerPl-mCnc 2.1mg/dL Normal [id number] 1.6 - 2.7 [facility] Lipase SerPl-cCnc 39U/L Normal [id number] 13 - 60 [facility] Albumin SerPl-mCnc 4.4g/dL Normal [id number] 3.5 - 5 [facility] AST SerPl-cCnc 23U/L Normal [id number] 10 - 55 HH CCT Bilirub SerPl-mCnc 0.3mg/dL Normal [id number] 0.2 - 1 [facility] Potassium SerPl-sCnc 3.1mmol/L Below low normal [id number] 3.4 - 5.3 [facility] CO2 SerPl-sCnc 25mmol/L Normal [id number] 22 - 33 HH CCT Chloride SerPl-sCnc 100mmol/L Normal [id number] 98 - 10 7 [facility] Albumin/Glob SerPl 1.4Ratio Normal [id number] 1 - 3 [facility] ALT SerPl-cCnc 22U/L Normal [id number] 10 - 55 HH CCT GFR/BSA.pred SerPlBld IAC-UYA-ZhGBxe 62 Normal [id number] 59 - [facility]CT Calcium SerPl-mCnc 9.6mg/dL Normal [id number] 8.7 - 10 .5 [facility] Creat SerPl-mCnc 1.4mg/dL Above high normal [id number] 0. 5 - 1.3 [facility] ALP SerPl-cCnc 104U/L Normal [id number] 45 - 128 HH CCT BUN SerPl-mCnc 24mg/dL Above high normal [id number] 8 - 21 [facility] Globulin Ser Calc-mCnc 3.1g/dL Normal [id number] 1.5 - 3.9 [facility] Sodium SerPl-sCnc 138mmol/L Normal [id number] 136 - 145 [facility] Glucose SerPl-mCnc 130mg/dL Above high normal [id number] 65 - 99 [facility] Prot SerPl-mCnc 7.5g/dL Normal [id number] 6.3 - 8.3 H [facility]CT BUN/Creat SerPl 17Ratio Normal [id number] 10 - 25 H [facility] Anion Gap Bld-sCnc 13 Normal [id number] 7 - 17 [facility] Ethanol SerPl-mCnc 11mg/dL Normal [id number] - 11 [facility] Amylase SerPl-cCnc 104U/L Above high normal [id number] 28 - 100 [facility] Lactate SerPl-sCnc 2.4mmol/L Above high normal [id number] 0.5 - 1.9 [facility] Lymphocytes num Bld Auto 3.02Thou/uL Normal [id number] 1.5 - 4.5 [facility] MCHC RBC Auto-mCnc 35g/dL Normal [id number] 30 - 36 [facility] PMV Bld Auto 9.8fL Normal [id number] 7.5 - 12.[address] Neutrophils num Bld Auto 7.51Thou/uL Above high normal [id number] 2 - 7.5 [facility] Imm Granulocytes/leuk NFr Bld Auto 0.3% Normal [id number] [facility] WBC num Bld Auto 11.3Thou/uL Above high normal [id number] 4 - 11 [facility] Imm Granulocytes num Bld Auto 0.03Thou/uL Normal [id number] 0 - 0.1 [facility] Hgb Bld-mCnc 14.3g/dL Normal [id number] 13 - 17.7 HHCC T Basophils num Bld Auto 0.04Thou/uL Normal [id number] 0 - 0.2 [facility]CT MCV RBC Auto 82fL Normal [id number] 80 - 100 HH T Monocytes/leuk NFr Bld Auto 4.7% Normal [id number] [facility] Monocytes num Bld Auto 0.53Thou/uL Normal [id number] 0. 2 - 1.5 [facility] Platelet num Bld Auto 254Thou/uL Normal [id number] 150 - 450 [facility] Eosinophil/leuk NFr Bld Auto 1.5% Normal [id number] [facility] Eosinophil num Bld Auto 0.17Thou/uL Normal [id number] 0 - 0.7 [facility] RDW RBC Auto-Rto 13.5% Normal [id number] 11.5 - 14. 5 [facility] Neutrophils/leuk NFr Bld Auto 66.4% Normal [id number] [facility] Basophils/leuk NFr Bld Auto 0.4% Normal [id number] [facility] MCH RBC Qn Auto 28.8pg Normal [id number] 26 - 34 H [facility] Lymphocytes/leuk NFr Bld Auto 26.7% Normal [id number] [facility] RBC num Bld Auto 4.97Mil/uL Normal [id number] 4.5 - 6.2 [facility] Hct VFr Bld Auto 40.8% Normal [id number] 39 - 54 [facility] POC Glucose 119mg/dL Above high normal [id number] 65 - 99 HHT Encounters Encounter Type Encounter Reason Primary Diagnosis Location Date Emergency Injury, unspecified, initial encounter Injury, unspecified, initial encounter [facility] 10/24/2024 Care Team Organization Name Specialty Phone Email Start Date End Da te [facility] 11/09/2024 12/29/2024 [facility] 10/25/2024
[2025-02-04 07:51] LABS: MANUAL DIFF FLAG NO
[2025-02-04 08:27] LABS: Basophils Percent Auto 0.3 % (0-2); Eosinophils Absolute Auto 0.2 X10*3/uL (0.0-0.4); Eosinophils Percent Auto 2.1 % (0-4); Imm Gran Abs Auto 0.04 X10*3/uL (0.00-0.03); Imm Gran Pct Auto 0.4 % (0.0-0.4); Lymphocytes Percent Auto 20.7 % (20-40); Mean Corpuscular HGB Conc 34.9 g/dl (31.0-36.0); Mean Corpuscular Hemoglobin 28.8 pg (27.0-33.0); Mean Corpuscular Volume 82.5 fL (80.0-98.0); Mean Platelet Volume 9.7 fL (9.4-12.4); Monocytes Absolute Auto 0.5 X10*3/uL (0.1-1.2); Neutrophils Absolute Auto 6.9 x10*3/uL (2.0-8.3); Neutrophils Percent Auto 71.5 % (45-73); Platelet Count 228 X10*3/uL (160-400); Red Blood Count 5.21 X10*6/uL (4.60-5.80); Red Cell Distribution Width 13.1 % (11.0-16.0); White Blood Count 9.6 X10*3/uL (4.8-10.8)
[2025-02-04 08:37] LABS: Appearance Urine Clear; Color Urine Yellow; Glucose Urine UA 100 mg/dL (Negative); Leukocyte Esterase Urine Negative (Negative); Nitrite Urine Negative (Negative); PH 8.5 (5.0-9.0); Specific Gravity - Urine 1.015 (1.005-1.025); Urine Blood Negative (Negative); Urine Ketones Negative (Negative); Urine Protein Trace mg/dL (Neg-Trace)
[2025-02-04 08:38] LABS: Estimated Average Glucose 117 mg/dL; Hemoglobin A1C 157.1319 umol/L; Hemoglobin A1c % 5.7 % (<6.0); Total Hemoglobin (HGBA1C) 4006.7708 umol/L
[2025-02-04 08:52] LABS: Creatinine Urine 114.96 mg/dL; Microalbum/Creatinine Ratio Ur 25.2 ug/mg cr (<30)
[2025-02-04 09:04] LABS: Alanine Aminotransferase 28 U/L (0-40); Albumin Level 4.3 g/dL (3.5-5.0); Alkaline Phosphatase 95 U/L (39-117); Anion Gap 11 (12-20); Aspartate Amino Transferase 25 U/L (5-37); Bilirubin Total 0.7 mg/dL (0.0-1.0); Blood Urea Nitrogen 17 mg/dL (9-16); Calcium 9.3 mg/dL (8.4-10.2); Carbon Dioxide 31 mmol/L (22-29); Chloride 103 mmol/L (96-108); Cholesterol 168 mg/dL (<200); Estimated Glomerular Filt Rate > 60; Glucose Fasting 128 mg/dL (60-99); HDL Cholesterol 46 mg/dL (>40); LDL Cholesterol Calculated 99 mg/dL (<100); Potassium 3.3 mmol/L (3.3-5.1); Sodium 142 mmol/L (135-145); Total Protein 7.1 g/dL (6.5-8.0); Triglycerides 116 mg/dL (<150)
[2025-02-04 09:22] LABS: TSH reflex Free T4 0.77 uIU/mL (0.32-4.0); Vitamin D 25-OH Total 56.2 ng/mL (>30)
== END 2025-02-04 07:35 | disposition home or self-care (01) ==
LOC: HO.LAB 07:34
PROVIDERS: PCP Internal Medicine; Visit Provider Internal Medicine
DX: E11.22 Type 2 diabetes mellitus with diabetic chronic kidney disease (principal); I12.9 Hypertensive chronic kidney disease with stage 1 through stage 4 chronic kidney disease, or unspecified chronic kidney disease; N18.31 Chronic kidney disease, stage 3a; E78.2 Mixed hyperlipidemia; E87.6 Hypokalemia; R79.89 Other specified abnormal findings of blood chemistry; R11.2 Nausea with vomiting, unspecified; E04.9 Nontoxic goiter, unspecified; E55.9 Vitamin D deficiency, unspecified; E66.9 Obesity, unspecified; D64.9 Anemia, unspecified; R30.0 Dysuria; Z79.899 Other long term (current) drug therapy
CPT/HCPCS: 36415; 80053; 80061; 81003; 82043; 82306; 82570; 83036; 83735; 84443; 85025; 96127

== ENCOUNTER 2025-02-04 16:33 | Outpatient (AMB) | payer BC, SELFPAY ==
--- OUTSIDE RECORDS SUMMARY | 2025-02-04 16:37 | XMS_ITS | Clinical Summary ---
Author Organization [facility] Address [address] [place] [address] Care Team Providers Care Timber Management Professor Name Role Phone Hayden Delgado MD Primary Care Provider +1- [phone] Allergies No known active allergies Medications No [...] patient's age to complete this topic Insurance [facility] OUT OF STATE - PPO Care Teams Timber Management Professor Relationship Specialty Start Date End Date Hayedn Delgado MD [address] [place] [address] Dr Gan [address] [place] [address] [place] [address] PCP - General Internal Medicine 10/24/24
[2025-02-04 16:41] VITALS: BP 136/82; PULSE 63; O2SAT 98; BMI 31.8
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
== END 2025-02-04 17:17 | disposition home or self-care (01) ==
LOC: HO.HMCH 16:34
PROVIDERS: PCP Internal Medicine; Visit Provider Internal Medicine
DX: I12.9 Hypertensive chronic kidney disease with stage 1 through stage 4 chronic kidney disease, or unspecified chronic kidney disease (principal); E11.22 Type 2 diabetes mellitus with diabetic chronic kidney disease; N18.31 Chronic kidney disease, stage 3a; E66.9 Obesity, unspecified; Z68.31 Body mass index [BMI] 31.0-31.9, adult; E87.6 Hypokalemia; E78.2 Mixed hyperlipidemia; R79.89 Other specified abnormal findings of blood chemistry; R11.2 Nausea with vomiting, unspecified; E04.9 Nontoxic goiter, unspecified; E55.9 Vitamin D deficiency, unspecified

== ENCOUNTER 2025-03-02 14:38 | Outpatient (REF) | payer BC, SELFPAY ==
--- NOTE | ~2025-03-02 | US_ITS ---
EXAMINATION: US THYROID HISTORY: E04.9 - Nontoxic goiter, unspecified TECHNIQUE: Real-time grayscale ultrasound imaging was performed and images were reviewed. COMPARISON: There are no prior studies for comparison. FINDINGS: SIZE: The right thyroid lobe measures 6.8 x 2.2 x 2.3 cm. The left thyroid lobe measures 5.8 x 2.4 x 2.0 cm. The isthmus measures 4 mm. FLOW: Flow to the gland is normal. ECHOGENICITY: The echotexture of the gland is heterogeneous. NODULES: Multiple thyroid nodules are identified as described below: Nodule #: 1 Location: Midportion of the right thyroid lobe measuring 5 x 4 x 5 mm. Shape: Wider than tall (0 points) Margins: Ill-defined (0 points) Echotexture: Hypoechoic (2 points) Composition: Mixed (1 point) Calcifications: Macrocalcifications (1 point) Total points: 4 TIRADS: TR4: Moderately suspicious. Nodule #: 2 Location: Midportion of the right thyroid lobe measuring 2.0 x 1.5 x 1.6 cm. Shape: Wider than tall (0 points) Margins: Smooth (0 points) Echotexture: Hypoechoic (2 points) Composition: Solid (2 points) Calcifications: None (0 points) Total points: 4 TIRADS: TR4: Moderately suspicious. Nodule #: 3 Location: Midportion of the right thyroid lobe measuring 1.5 x 0.8 x 1.4 cm. Shape: Wider than tall (0 points) Margins: Smooth (0 points) Echotexture: Hypoechoic (2 points) Composition: Solid (2 points) Calcifications: None (0 points) Total points: 4 TIRADS: TR4: Moderately suspicious. Nodule #: 4 Location: Lower pole of the right thyroid lobe measuring 1.0 x 0.6 x 0.8 cm. Shape: Wider than tall (0 points) Margins: Smooth (0 points) Echotexture: Isoechoic (1 point) Composition: Solid (2 points) Calcifications: None (0 points) Total points: 3 TIRADS: TR3: Mildly suspicious. Nodule #: 5 Location: Midportion of the left thyroid lobe measuring 1.8 x 1.4 x 1.5 cm. Shape: Wider than tall (0 points) Margins: Ill-defined (0 points) Echotexture: Isoechoic (1 point) Composition: Solid (2 points) Calcifications: None (0 points) Total points: 3 TIRADS: TR3: Mildly suspicious. US/US thyroid IMPRESSION: Multiple bilateral thyroid nodules are identified. According to ACR TI-RADS guidelines below, ultrasound-guided fine-needle aspiration of nodules #2 and 3 is recommended. ACR TI-RADS Guidelines TR1 (0 points): Benign, No follow-up or biopsy required TR2 (2 points): Not Suspicious, No biopsy or follow up indicated TR3 (3 points): Mildly Suspicious, FNA if >= 2.5 cm, Follow if >= 1.5 cm TR4 (4-6 points): Moderately Suspicious, FNA if >= 1.5 cm, Follow if >= 1.0 cm TR5 (>=7 points): Highly Suspicious, FNA if >= 1.0 cm, Follow if >= 0.5 cm Electronically signed by: Davy Mascorro MD 03/03/2025 07:09 AM EDT
--- OUTSIDE RECORDS SUMMARY | 2025-03-02 14:48 | XMS_ITS | Clinical Summary ---
Author Organization [facility] Address [address] [place] [address] Care Team Providers Care Life Advisor Name Role Phone Hayden Delgado MD Primary Care Provider +1- [phone] Allergies No known active allergies Medications No [...] - 19+ 3-dose series) 1995 Colonoscopy 2021 COVID-19 Vaccine (2023-2 5 season) 2024 Influenza Vaccine 05/13/2025 DTaP/Tdap/Td Vaccines (2 - T d or Tdap) 10/24/2034 10/24/2024 Pneumococcal Vaccine: Pediat radha (0-5 Years) and At-Risk Patients (6 to 49 Years) Aged Out No longer eligible b ased on patient's age to complete this topic Insurance [facility] OUT [facility] STATE - PPO Care Teams Life Advisor Relationship Specialty Start Date End Date Hayden Delgado MD [address] [place] [address] Dr Gan [address] [place] [address] [place] [id number] PCP - General Internal Medicine 10/24/24
== END 2025-03-02 14:39 | disposition home or self-care (01) ==
LOC: HO.US 14:38
PROVIDERS: PCP Internal Medicine; Visit Provider Internal Medicine
DX: E04.9 Nontoxic goiter, unspecified (principal)
CPT/HCPCS: 76536

== ENCOUNTER → 2025-03-02 14:40 | Outpatient (BNV) | payer BC, SELFPAY | PROVIDERS: PCP Internal Medicine; Visit Provider Radiology Diagnostic Radiology | DX: E04.2 Nontoxic multinodular goiter (principal) | CPT/HCPCS: 76536 ==

== ENCOUNTER 2025-06-03 07:22 | Outpatient (REF) | payer BC, SELFPAY ==
--- OUTSIDE RECORDS SUMMARY | 2025-06-03 07:24 | XMS_ITS | Clinical Summary ---
Author Organization [facility] Address [address] [place] [address] Care Team Providers Care Accounts Officer Name Role Phone Hayden Delgado MD Primary Care Provider +1- [phone] Allergies No known active allergies Medications No [...] 85 10/25/2024 2:09 AM EST Temperature 35.9 C (96.7 F) 10/25/2024 2:09 AM EST Respiratory Rate 18 10/25/2024 2:09 AM EST Oxygen Saturation 98% 10/25/2024 2:09 AM EST Inhaled Oxygen Concentration - - Weight - - Height - - Body Mass Index - - Plan of Treatment Health Maintenance Due Date Last Done Comments Hepatitis C Virus Screening 1976 HIV Screening 1989 Hepatitis B Vaccines (1 of 3 - 19+ 3-dose series) 1995 Colonoscopy 2021 COVID-19 Vaccine ( - 2023-2 5 season) 2024 Influenza Vaccine 05/13/2025 DTaP/Tdap/Td Vaccines (2 - T d or Tdap) 10/24/2034 10/24/2024 Pneumococcal Vaccine: Pediat radha (0-5 Years) and At-Risk Patients (6 to 49 Years) Aged Out No longer eligible b ased on patient's age to complete this topic Insurance [facility] - PPO Care Teams Accounts Officer Relationship Specialty Start Date End Date Hayden Delgado MD [address] [place] [address] Dr Gan [address] [place] [phone] PCP - General Internal Medicine 10/24/24
--- OUTSIDE RECORDS SUMMARY | 2025-06-03 07:24 | XMS_ITS ---
Author Name [facility] Organization Unknown Results Test Name/Text Value Interpretation Date Range Source fentaNYL+Norfentanyl Ur Ql Scn Negative Normal 10/25/2024 - [facility] Cannabinoids Ur Ql Scn>50 ng/mL Positive Abnormal 10/25/2024 - [facility] Amphetamines Ur Ql Negative Normal 10/25/2024 - [facility] PCP Ur Ql Scn>25 ng/mL Negative Normal 10/25/2024 - [facility] Opiates Ur Ql Scn>300 ng/mL Negative Normal 10/25/2024 - [facility] Benzodiaz Ur Ql Scn>200 ng/mL Negative Normal 10/25/2024 - [facility] BZE Ur Ql Negative Normal 10/25/2024 - [facility] Phosphate SerPl-mCnc 0.8 mg/dL Critically low 10/25/2024 2.7 - 4.5 [facility] Ca-I SerPl-mCnc 1.2 mmol/L Normal 10/25/2024 1.17 - 1.33 [facility] CK SerPl-cCnc 195.0 U/L Normal 10/25/2024 24 - 204 [facility] Magnesium SerPl-mCnc 2.1 mg/dL Normal 10/25/2024 1.6 - 2. 7 [facility] Lipase SerPl-cCnc 39.0 U/L Normal 10/25/2024 13 - 60 H [facility] Albumin SerPl-mCnc 4.4 g/dL Normal 10/25/2024 3.5 - 5 [facility] AST SerPl-cCnc 23.0 U/L Normal 10/25/2024 10 - 55 [facility] T Bilirub SerPl-mCnc 0.3 mg/dL Normal 10/25/2024 0.2 - 1 [facility] Potassium SerPl-sCnc 3.1 mmol/L Below low normal 10/25/2024 3.4 - 5.3 [facility] CO2 SerPl-sCnc 25.0 mmol/L Normal 10/25/2024 22 - 33 HH CCT Chloride SerPl-sCnc 100.0 mmol/L Normal 10/25/2024 98 - 1 07 [facility] Albumin/Glob SerPl 1.4 Ratio Normal 10/25/2024 1 - 3 [facility] ALT SerPl-cCnc 22.0 U/L Normal 10/25/2024 10 - 55 [facility] T GFR/BSA.pred SerPlBld XEL-WLH-OmTZhb 62.0 Normal 10/25/2024 59 - [facility] Calcium SerPl-mCnc 9.6 mg/dL Normal 10/25/2024 8.7 - 10.5 [facility] Creat SerPl-mCnc 1.4 mg/dL Above high normal 10/25/2024 0.5 - 1.3 [facility] ALP SerPl-cCnc 104.0 U/L Normal 10/25/2024 45 - 128 [facility] T BUN SerPl-mCnc 24.0 mg/dL Above high normal 10/25/2024 8 - 2 1 [facility] Globulin Ser Calc-mCnc 3.1 g/dL Normal 10/25/2024 1.5 - 3.9 [facility] Sodium SerPl-sCnc 138.0 mmol/L Normal 10/25/2024 136 - 14 5 [facility] Glucose SerPl-mCnc 130.0 mg/dL Above high normal 10/25/2024 65 - 99 [facility] Prot SerPl-mCnc 7.5 g/dL Normal 10/25/2024 6.3 - 8.[address] BUN/Creat SerPl 17.0 Ratio Normal 10/25/2024 10 - 25 HH CCT Anion Gap Bld-sCnc 13.0 Normal 10/25/2024 7 - 17 [facility] Ethanol SerPl-mCnc <11.0 mg/dL Normal 10/25/2024 - 11 [facility] Amylase SerPl-cCnc 104.0 U/L Above high normal 10/25/2024 28 - 100 [facility] Lactate SerPl-sCnc 2.4 mmol/L Above high normal 10/25/2024 0 .5 - 1.9 [facility] Lymphocytes num Bld Auto 3.02 Thou/uL Normal 10/25/2024 1.5 - 4.5 [facility] MCHC RBC Auto-mCnc 35.0 g/dL Normal 10/25/2024 30 - 36 [facility] PMV Bld Auto 9.8 fL Normal 10/25/2024 7.5 - 12.5 [facility] Neutrophils num Bld Auto 7.51 Thou/uL Above high normal 10/25/2024 2 - 7.5 [facility] Imm Granulocytes/leuk NFr Bld Auto 0.3 % Normal 10/25/2024 [facility] WBC num Bld Auto 11.3 Thou/uL Above high normal 10/25/2024 4 - 11 [facility] Imm Granulocytes num Bld Auto 0.03 Thou/uL Normal 10/25/2024 0 - 0.1 [facility] Hgb Bld-mCnc 14.3 g/dL Normal 10/25/2024 13 - 17.7 [facility] Basophils num Bld Auto 0.04 Thou/uL Normal 10/25/2024 0 - 0.2 [facility] MCV RBC Auto 82.0 fL Normal 10/25/2024 80 - 100 [facility] Monocytes/leuk NFr Bld Auto 4.7 % Normal 10/25/2024 [facility] Monocytes num Bld Auto 0.53 Thou/uL Normal 10/25/2024 0.2 - 1.5 [facility] Platelet num Bld Auto 254.0 Thou/uL Normal 10/25/2024 150 - 450 [facility] Eosinophil/leuk NFr Bld Auto 1.5 % Normal 10/25/2024 [facility] Eosinophil num Bld Auto 0.17 Thou/uL Normal 10/25/2024 0 - 0.7 [facility] RDW RBC Auto-Rto 13.5 % Normal 10/25/2024 11.5 - 14.5 [facility] Neutrophils/leuk NFr Bld Auto 66.4 % Normal 10/25/2024 [facility] Basophils/leuk NFr Bld Auto 0.4 % Normal 10/25/2024 [facility] MCH RBC Qn Auto 28.8 pg Normal 10/25/2024 26 - [address] Lymphocytes/leuk NFr Bld Auto 26.7 % Normal 10/25/2024 [facility] RBC num Bld Auto 4.97 Mil/uL Normal 10/25/2024 4.5 - 6.2 [facility] Hct VFr Bld Auto 40.8 % Normal 10/25/2024 39 - 54 HH CCT POC Glucose 119.0 mg/dL Above high normal 10/24/2024 65 - 99 CCT Encounters Encounter Type Encounter Reason Primary Diagnosis Location Date Emergency Injury, unspecified, initial encounter Injury, unspecified, initial encounter [email or web address] 10/24/2024 Care Team Organization Name Specialty Phone Email Start Date End [facility] 11/09/2024 12/29/2024 [email or web address] Primary [facility] 10/25/2024 [email or web address] 10/25/2024
[2025-06-03 07:37] LABS: MANUAL DIFF FLAG NO
[2025-06-03 07:53] LABS: Hematocrit 42.7 % (42.0-52.0); Hemoglobin 14.5 g/dl (14.0-18.0); Imm Gran Abs Auto 0.02 X10*3/uL (0.00-0.03); Imm Gran Pct Auto 0.2 % (0.0-0.4); Lymphocytes Absolute Auto 1.8 X10*3/uL (1.2-4.9); Mean Corpuscular HGB Conc 34.0 g/dl (31.0-36.0); Mean Corpuscular Hemoglobin 28.2 pg (27.0-33.0); Mean Corpuscular Volume 83.1 fL (80.0-98.0); NRBC Abs Auto 0.000 X10*3/uL (0.0-0.012); NRBC Pct Auto 0.0 /100WBC (0.0-0.2); Platelet Count 214 X10*3/uL (160-400); Red Blood Count 5.14 X10*6/uL (4.60-5.80); White Blood Count 8.5 X10*3/uL (4.8-10.8)
[2025-06-03 08:24] LABS: Alanine Aminotransferase 26 U/L (0-40); Albumin Level 4.5 g/dL (3.5-5.0); Alkaline Phosphatase 98 U/L (39-117); Anion Gap 11 (12-20); Aspartate Amino Transferase 29 U/L (5-37); Blood Urea Nitrogen 19 mg/dL (9-16); Calcium 9.2 mg/dL (8.4-10.2); Carbon Dioxide 31 mmol/L (22-29); Chloride 103 mmol/L (96-108); Cholesterol 156 mg/dL (<200); Estimated Glomerular Filt Rate 54; HDL Cholesterol 42 mg/dL (>40); Potassium 3.4 mmol/L (3.3-5.1); Sodium 142 mmol/L (135-145); Total Protein 7.2 g/dL (6.5-8.0); Triglycerides 131 mg/dL (<150)
[2025-06-03 08:33] LABS: Appearance Urine Cloudy; Glucose Urine UA Negative (Negative); PH 7.0 (5.0-9.0); Specific Gravity - Urine 1.020 (1.005-1.025); UMIC TRIGGER UACC YES
== END 2025-06-03 07:23 | disposition home or self-care (01) ==
LOC: HO.LAB 07:22
PROVIDERS: PCP Internal Medicine; Visit Provider Internal Medicine
DX: E11.22 Type 2 diabetes mellitus with diabetic chronic kidney disease (principal); I12.9 Hypertensive chronic kidney disease with stage 1 through stage 4 chronic kidney disease, or unspecified chronic kidney disease; N18.31 Chronic kidney disease, stage 3a; E78.2 Mixed hyperlipidemia; E78.00 Pure hypercholesterolemia, unspecified; E55.9 Vitamin D deficiency, unspecified; D64.9 Anemia, unspecified; E87.6 Hypokalemia; R79.89 Other specified abnormal findings of blood chemistry; E04.9 Nontoxic goiter, unspecified; E66.9 Obesity, unspecified; E04.2 Nontoxic multinodular goiter; Z68.33 Body mass index [BMI] 33.0-33.9, adult
CPT/HCPCS: 36415; 80053; 80061; 81001; 82306; 83036; 84443; 85025; 96127

== ENCOUNTER 2025-06-03 16:37 | Outpatient (AMB) | payer BC, SELFPAY ==
--- OUTSIDE RECORDS SUMMARY | 2025-06-03 16:40 | XMS_ITS | Clinical Summary ---
Author Organization [facility] Address [address] [place] [address] Care Team Providers Care Shoer Name Role Phone Hayden Delgado MD Primary Care Provider [phone]- [phone] Allergies No known active allergies Medications No [...] patient's age to complete this topic Insurance [facility] OUT OF [facility] - PPO Care Teams Shoer Relationship Specialty Start Date End Date Hayden Delgado MD [address] [place] [address] Dr [address] [place] [id number] PCP - General Internal Medicine 10/24/24
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
[2025-06-03 16:46] VITALS: BP 140/82; PULSE 73; O2SAT 97; BMI 33.1
== END 2025-06-03 17:35 | disposition home or self-care (01) ==
LOC: HO.HMCH 16:38
PROVIDERS: PCP Internal Medicine; Visit Provider Internal Medicine
DX: I12.9 Hypertensive chronic kidney disease with stage 1 through stage 4 chronic kidney disease, or unspecified chronic kidney disease (principal); E11.22 Type 2 diabetes mellitus with diabetic chronic kidney disease; N18.31 Chronic kidney disease, stage 3a; E66.9 Obesity, unspecified; Z68.33 Body mass index [BMI] 33.0-33.9, adult; E78.2 Mixed hyperlipidemia; E87.6 Hypokalemia; R79.89 Other specified abnormal findings of blood chemistry; E04.9 Nontoxic goiter, unspecified; E55.9 Vitamin D deficiency, unspecified; E04.2 Nontoxic multinodular goiter

== ENCOUNTER 2025-10-07 15:55 | Outpatient (AMB) | payer BC, SELFPAY ==
--- OUTSIDE RECORDS SUMMARY | 2025-10-07 15:59 | XMS_ITS | Clinical Summary ---
Author Organization [facility] Address [address] [place] [address] Care Team Providers Care Carrot Harvester Name Role Phone Hayden Delgado MD Primary Care Provider +1- [phone] Allergies No known active allergies Medications No [...] 3-dose series) 1995 Colonoscopy 2021 Influenza Vaccine 05/13/2025 COVID-19 Vaccine ( - 2024-2 6 season) 2025 DTaP/Tdap/Td Vaccines (2 - T d or Tdap) 10/24/2034 10/24/2024 Pneumococcal Vaccine: Pediat radha (0-5 Years) and At-Risk Patients (6 to 49 Years) Aged Out No longer eligible b ased on patient's age to complete this topic Insurance [facility] OUT OF [facility] - PPO Care Teams Carrot Harvester Relationship Specialty Start Date End Date Hayden Delgado MD [address] [place] [address] Dr Gan [address] [place] [phone] PCP - General Internal Medicine 10/24/24
[2025-10-07 16:05] VITALS: BP 142/86; PULSE 79; RESP 18; O2SAT 96; BMI 35.0
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
== END 2025-10-07 16:32 | disposition home or self-care (01) ==
LOC: HO.HMCH 15:56
PROVIDERS: PCP Internal Medicine
DX: Z00.00 Encounter for general adult medical examination without abnormal findings (principal); E11.22 Type 2 diabetes mellitus with diabetic chronic kidney disease; N18.31 Chronic kidney disease, stage 3a; I10 Essential (primary) hypertension; E78.2 Mixed hyperlipidemia; E87.6 Hypokalemia; R79.89 Other specified abnormal findings of blood chemistry; E04.9 Nontoxic goiter, unspecified; E55.9 Vitamin D deficiency, unspecified; E66.9 Obesity, unspecified; E04.2 Nontoxic multinodular goiter